=== PATIENT | female | born 1980 | race African-American/Black ===

== ENCOUNTER 2016-09-05 16:25 | Emergency (ER) | payer OTHER ==
[2016-09-05 16:37] VITALS: RESP 18
--- NOTE | 2016-09-05 17:15 | XR ---
EXAMINATION TYPE: XR knee complete LT DATE OF EXAM: 09/05/2016 5:07 PM COMPARISON: NONE HISTORY: Knee pain for one and half weeks TECHNIQUE: 3 views FINDINGS: I see no fracture nor dislocation. Joint spaces are fairly normal. There is no sign of join t effusion. IMPRESSION: Negative left knee exam.
--- NOTE | 2016-09-05 17:26 | ED ---
General Adult HPI - General Chief complaint: Extremity Injury, Lower Stated complaint: Left Knee Pain Time Seen by Provider: 09/05/16 16:44 Source: patient, RN notes reviewed Mode of arrival: ambulatory Limitations: no limitations - History of Present Illness Initial comments: Is a 35-year-old female who presents with left posterior knee pain 1 week and a half. Patient states she was laying in bed when she went to get up she noticed pain in the left posterior knee. Patient denies any fall or trauma to the left knee. Patient states she has chronic swelling to bilateral lower extremities and denies any history of DVT. Patient denies noticing any increased swelling to the left lower extremity versus the right. Patient denies that she's had any pain like this before. Patient denies any numbness/ tingling or weakness to the left lower extremity. Patient denies any radicular pain. Patient states the pain is worse with extension of the lower extremity and with walking. Patient denies any recent fever, chills, shortness breath, chest pain, abdominal pain, nausea/vomiting/diarrhea, back pain, hematuria, headache, or visual changes, or any other complaints. - Related Data Previous Rx's Medication Instructions Recorded Naproxen [Naprosyn] 500 mg PO Q12HR #30 tab 07/10/16 Allergies Allergy/AdvReac Type Severity Reaction Status Date / Time No Known Allergies Allergy Verified 09/05/16 16:37 Review of Systems ROS Statement: Those systems with pertinent positive or pertinent negative responses have been documented in the HPI. ROS Other: All systems not noted in ROS Statement are negative. Past Medical History Past Medical History: No Reported History Additional Past Medical History / Comment(s): leg issues, restless leg syndrome History of Any Multi-Drug Resistant Organisms: None Reported Past Surgical History: No Surgical Hx Reported Past Psychological History: No Psychological Hx Reported Smoking Status: Current every day smoker Past Alcohol Use History: Occasional Past Drug Use History: None Reported General Exam - General Exam Comments Initial Comments: General: The patient is awake and alert, in no distress, and does not appear acutely ill. Neck: The neck is supple, there is no tenderness or JVD. Cardiovascular: There is a regular rate and rhythm. No murmur, rub or gallop is appreciated. Respiratory: Lungs are clear to auscultation, respirations are non-labored, breath sounds are equal. No wheezes, stridor, rales, or rhonchi. Musculoskeletal: There is tenderness to the posterior lateral aspect of the left knee. There is mild swelling to the posterior lateral aspect of the left knee. No erythema, warmth or ecchymosis. Full range of motion, strength 5/5 and Sensation intact. Dorsalis pedis pulses 2+ bilaterally. No calf tenderness bilaterally. Neurological: A&O x 3. CN II-XII intact, There are no obvious motor or sensory deficits. Coordination appears grossly intact. Speech is normal. Skin: Skin is warm and dry and no rashes or lesions are noted. Psychiatric: Normal mood and affect. Limitations: no limitations Course Vital Signs 09/05/16 16:33 Temperature 98.6 F Pulse Rate 98 Respiratory 18 Rate Blood Pressure 144/70 O2 Sat by Pulse 100 Oximetry Medical Decision Making - Medical Decision Making This is a 35-year-old female resents with left posterior knee pain. On physical exam there is tenderness to the posterior lateral aspect of the left knee. There is mild swelling to the lateral posterior lateral aspect of the left knee. No erythema, warmth or ecchymosis. Full range of motion, strength 5 /5 and Sensation intact. Dorsalis pedis pulses 2+ bilaterally. No calf tenderness bilaterally. X-ray of the left knee was done and reviewed showing: Negative left knee exam. Reported by Dr. Lr. Ultrasound of the left lower extremity was done and reviewed showing: No evidence of deep venous thrombosis in the left leg. There is normal augmentation. Reported by Dr. Lr. Discussed the results with patient. Discussed return parameters. Discussed rest, ice, elevate and use Jacob bandage for compression. Patient is able to ambulate. Discussed [id number] Tylenol and or Motrin as needed for any pain. Discussed that patient should follow up with PCP in one to 2 days or return to the [facility] for any worsening symptoms or for any further concerns. Patient was receptive to this plan and patient will be discharged home. I discussed his case with attending physician Dr. Parsons who agrees the plan as stated above. Disposition Clinical Impression: Left lateral knee pain, Posterior left knee pain Disposition: HOME SELF-CARE Condition: Good Instructions: Knee Pain (ED) Additional Instructions: Please rest, ice, elevate and use compression to the left lower extremity. Tylenol and Motrin as needed for any pain. Please use medication as discussed. Please follow-up with family doctor in the next 2 days of symptoms have not improved. Please return to emergency room if the symptoms increase or worsen or for any other concerns. Referrals: Allison Cardenas MD [Primary Care Provider] - 1-2 days Time of Disposition: 18:35
--- NOTE | 2016-09-05 18:19 | US ---
EXAMINATION TYPE: US venous doppler duplex LE LT DATE OF EXAM: 09/05/2016 6:08 PM COMPARISON: NONE CLINICAL HISTORY: Left posterior knee pain; patient stated left knee locked 2 days prior and has cont inued left knee pain and weakness. SIDE PERFORMED: Left VESSELS IMAGED: Common Femoral Vein Deep Femoral Vein Greater Saphenous Vein * Femoral Vein Popliteal Vein Small Saphenous Vein * Proximal Calf Veins (* superficial vessels) Left Leg: Negative for DVT as was able to image due to large limb size. Left Popliteal Vein was limi tedly seen for compression maneuver TECHNOLOGIST IMPRESSION: Exam is technically limited by patient body habitus at HT5'4", Wt 320lbs IMPRESSION: No evidence of deep venous thrombosis in the left leg. There is normal augmentation.
[2016-09-05 18:43] VITALS: BP 144/82; PULSE 84; TEMP 98.7
== END 2016-09-05 18:42 | disposition home or self-care (01) ==
LOC: EC 16:25
DX: M25.562 Pain in left knee (principal); F17.200 Nicotine dependence, unspecified, uncomplicated; X58.XXXA Exposure to other specified factors, initial encounter
CPT/HCPCS: 99284

== ENCOUNTER → 2017-12-12 | Outpatient (CLI) | payer OTHER ==
[2017-12-12 10:18] VITALS: BP 169/100; PULSE 97; RESP 15; TEMP 98.1; BMI 67.3
--- NOTE | 2017-12-29 21:07 | P.HPBAR ---
Bariatric H&P - History & Physicial H&P Date: 12/12/17 History & Physicial: Visit/CC: sleeve consult Patient initial contact: Initial weight: 179.26 kg Initial weight in pounds: 395.20 Height: 5 ft 4.25 in Initial BMI: 67.3 Last weight: Current weight: 179.26 kg Current weight in pounds: 395.20 Current BMI: 67.3 [place] body weight (based on NIH guidelines): 54.998 kg Excess body weight loss: 0.0% The patient is a 37 year-old F who presents for Bariatric Assessment. DATE OF SERVICE: 12/12/2017 REASON FOR CONSULTATION: Initial bariatric evaluation HISTORY OF PRESENT ILLNESS: Amber Rodríguez is a 37-year-old female who comes in with long-standing morbid obesity. As result of her obesity, she has developed hypertension. She also developed diabetes. She has stopped smoking. She has tried Weight Watchers included and portion control. She lost initially 27 pounds. She has developed sleep apnea. She is looking into the sleeve gastrectomy. She has a family history of morbid obesity with weight loss surgery in her mother. She reports troubles with spicey food. She still has her gallbladder. She reports back pain including left hip pain and right knee pain. She has arthritis of the left knee. She reports bilateral lower extremity swelling. She is looking into the sleeve gastrectomy. She reports history of right upper quadrant abdominal pain. At height of 5 feet 4.25 inches, her ideal body weight is 144 pounds. She comes in highest weight of 394 pounds. Body mass index is 67.3. She is 250 pounds overweight. PAST MEDICAL HISTORY: 1. Morbid obesity. 2. Body mass index of 67.3, initial. 3. Osteoarthritis of the knees. 4. Osteoarthritis of the hips. 5. Osteoarthritis of the lower back. 6. Obstructive sleep apnea. 7. Hypertensive heart disease. 8. Gastroesophageal reflux disease 9. Diabetes type 2 10. Osteoarthritis of the bilateral ankles. PAST SURGICAL HISTORY: 1. section 2. Uterine ablation 3. Tonsillectomy 4. Orthopedic procedure 5. Eustachian tubes 6. Bilateral carpal tunnel release HOME MEDICATIONS: 1. Naprosyn 2. Motrin ALLERGIES: Denies. SOCIAL HISTORY: History of tobacco abuse. FAMILY HISTORY: No family history of ulcerative colitis disease or Crohn's disease. Family history of morbid obesity. No lupus in the family. No reports of stomach or esophageal cancer. Family history of diabetes type 2. REVIEW OF ORGAN SYSTEMS: CONSTITUTIONAL: At height of 5 feet 4.25 inches, her ideal body weight is 144 pounds. She comes in highest weight of 394 pounds. Body mass index is 67.3. She is 250 pounds overweight. HEENT: Denies any active troubles with vision or hearing. No troubles with swallowing. ENDOCRINE: Has diabetes. No hypothyroidism. CARDIOVASCULAR: No reports of palpitations or heart attacks or chest pain. RESPIRATORY: Has daytime somnolence. No asthma. Has obstructive sleep apnea. GI: Denies any bright red blood per rectum. No diarrhea or constipation. Has gastroesophageal reflux disease. Has fatty food intolerance. MUSCULOSKELETAL: Has lower back pain and joint pain. Has osteoarthritis of the knees. NEURO: No headaches. No seizure disorders. PSYCH: Has depression. Has anxiety. No suicidal ideation. RHEUMATOLOGIC: No lupus. No rheumatoid arthritis. HEMATOLOGIC: Denies any abnormal bleeding or bruising. No personal history of DVTs. SKIN: No rash. No skin cancer. PHYSICAL EXAM: VITAL SIGNS: Height 5 foot 4.25 inches, weight 394 pounds. BMI 67.3 Vital Signs Temp 98.1 F 12/12/17 10:06 Pulse 97 12/12/17 10:06 Resp 15 12/12/17 10:06 BP 169/100 12/12/17 10:06 Pulse Ox GENERAL: Well-developed in no acute distress. HEENT: No scleral icterus. Extraocular movements grossly intact. Hears conversational speech. No nasal drainage. NECK: Supple without lymphadenopathy. CHEST: Nonlabored respirations with equal bilateral excursions. CARDIOVASCULAR: Regular rate and regular rhythm. Distal 2+ pulses. ABDOMEN: Obese, soft, nontender, nondistended. MUSCULOSKELETAL: No clubbing, cyanosis. Gross strength 5/5 distal lower extremities. 2+ pre-tibial pitting edema. NEURO: No focal or lateralizing signs. Cranial nerves 2 through 12 grossly within normal limits. PSYCH: Appropriate affect. Alert and oriented to person, place and time. SKIN: Good skin turgor. Well perfused. ASSESSMENT: 1. Morbid obesity. 2. Body mass index of 67.3, initial. 3. Osteoarthritis of the knees. 4. Osteoarthritis of the hips. 5. Osteoarthritis of the lower back. 6. Obstructive sleep apnea. 7. Hypertensive heart disease. 8. Gastroesophageal reflux disease 9. Diabetes type 2 10. Osteoarthritis of the bilateral ankles. 11. Bilateral lower extremity edema. 12. Right upper quadrant abdominal pain PLAN: 1. Surgical options including a band, gastric bypass, sleeve gastrectomy were described in detail. Alternatives such as gastric balloon including duodenal switch were described. 2. The [place] bariatric surgical collaborative data and outcomes calculator were described with surgical options. 3. Recommend a bariatric metabolic panel to evaluate for micro- including macronutrient deficiencies. 4. For history of daytime somnolence, recommend evaluation and treatment for sleep apnea. 5. Dietary surveillance and counseling was reviewed, I have asked increased protein intake to at least 65 grams daily. 6. Will need cardiac risk assessment. 7. Recommend medical risk assessment. 8. Psych assessment per insurance guidelines. 9. Follow up upon completion of upper endoscopy. 10. Recommend 12-lead EKG with family history of hypertensive heart disease. 11. Recommend upper endoscopy. 12. Recommend right upper quadrant ultrasound and HIDA scan for gallbladder Thank you for this consultation. Past Medical History Past Medical History: No Reported History, Hypertension Additional Past Medical History / Comment(s): leg issues, restless leg syndrome , states she was using a diuretic for HTN but was d/c by Dr. Cardenas History of Any Multi-Drug Resistant Organisms: None Reported Past Surgical History: No Surgical Hx Reported Past Anesthesia/Blood Transfusion Reactions: No Reported Reaction Additional Past Anesthesia/Blood Transfusion Reaction / Comm: No problems being put under for dental extractions Past Psychological History: No Psychological Hx Reported Smoking Status: Current every day smoker Past Alcohol Use History: Occasional Additional Past Alcohol Use History / Comment(s): smokes 3-4 cigarettes/day Past Drug Use History: None Reported - Past Family History Mother Family Medical History: No Reported History Additional Family Medical History / Comment(s): mother had bariatric surgery Father Family Medical History: No Reported History Surgical - Exam Vital Signs Temp Pulse Resp BP 98.1 F 97 15 169/100 12/12/17 10:06 12/12/17 10:06 12/12/17 10:06 12/12/17 10:06 Bariatric Checklist Checklist: Plan: Checklist: EGD: 1. Hiatal hernia: 2. H. Pylori: HgbA1c: Vitamin D: Smoking: Current every day smoker Primary care physician referral: stephanie Psychiatry clearance: Cardiology clearance: Sleep study: Diet journal: VTE risk score: VTE risk level: Rehab needs at discharge:
== END | disposition home or self-care (01) ==
LOC: BARWHC3 09:38
PROVIDERS: ATTEND Surgery Plastic and Reconstructive Surgery
DX: E66.01 Morbid (severe) obesity due to excess calories (principal); K21.9 Gastro-esophageal reflux disease without esophagitis; M17.0 Bilateral primary osteoarthritis of knee; M16.0 Bilateral primary osteoarthritis of hip; M47.9 Spondylosis, unspecified; G47.33 Obstructive sleep apnea (adult) (pediatric); I11.9 Hypertensive heart disease without heart failure; E11.9 Type 2 diabetes mellitus without complications; M19.072 Primary osteoarthritis, left ankle and foot; M19.071 Primary osteoarthritis, right ankle and foot; R60.0 Localized edema; R10.11 Right upper quadrant pain; G25.81 Restless legs syndrome; F17.210 Nicotine dependence, cigarettes, uncomplicated; Z79.1 Long term (current) use of non-steroidal anti-inflammatories (NSAID); Z68.44 Body mass index [BMI] 60.0-69.9, adult; Z79.2 Long term (current) use of antibiotics
CPT/HCPCS: 99211

== ENCOUNTER → 2018-05-08 | Outpatient (CLI) | payer OTHER ==
--- NOTE | 2018-05-08 11:57 | CONS ---
CONSULTATION DATE OF SERVICE: 05/08/2018 A 37-year-old lady has been evaluated in sleep center for obstructive sleep apnea- hypopnea syndrome. HISTORY OF PRESENT ILLNESS/SLEEP-WAKE EVALUATION: Patient usual sleep schedule on weekdays from around 3 a.m. until around 9 a.m. and on weekends from about 2 a.m. until 8 or 9 a.m. No problems with falling asleep, although she has TV in bedroom. She sleeps on the stomach with extremely loud snoring, multiple awakenings from sleep with nocturia, witnessed episodes of stopped breathing during the sleep and awakenings with gasping for air and even vomiting. In the morning, patient wakes up tired, falling asleep during the day, has problem with concentration. [place] Sleepiness Scale is in extremely high range of 20. PAST MEDICAL HISTORY: Positive for swelling of legs, seasonal allergy with rhinitis and sinusitis. MEDICATIONS: ID packs, ibuprofen, water pills. SOCIAL HISTORY: Positive for smoking for about 10 pack years, quit 1 week ago. Alcohol consumption occasional. REVIEW OF SYSTEMS: Multiple awakenings from sleep, sleepiness during the day. Presently significant restriction of nasal breathing, nasal discharge, or swelling of the legs. FAMILY HISTORY: Hypertension, arthritis, thyroid problems. PHYSICAL EXAMINATION: During physical exam, a 37-year-old lady without distress. VITAL SIGNS: BP 164/92, HR 93, RR 15, height 65 inches, weight 416.4 pounds, body mass index 69.2, temperature 98, oxygen saturation on room air 100%. HEENT: PERRLA, EOMI. Oropharynx extremely low position of soft palate, Mallampati 4. Restriction of nasal breathing bilaterally. Nose, some discharges from the nose. NECK: A wide neck 16-1/2 inches in circumference. LUNGS: Clear to percussion and to auscultation. Good air exchange. No wheezing or rhonchi. HEART: S1, S2 regular. No murmurs, gallops, or rubs. ABDOMEN: Obese. EXTREMITIES: 1+ bilateral leg edema. CURING ROOM SUPERVISOR: Awake, alert, and oriented X3. Cranial nerves 2 to 7 intact. There is no fasciculation or atrophy. noted. No focal deficits observed. IMPRESSION: 1. Snoring, witnessed episodes of stopped breathing during the sleep, awakenings with gasping for air and vomiting, extremely low position of soft palate, wide neck, restriction of nasal breathing, significant excessive daytime sleepiness. [place] Sleepiness Scale is 20. Obstructive sleep apnea-hypopnea syndrome, probably in severe range. 2. Morbid obesity, body mass index 69.2. 3. Hypertension. 4. Swelling of the legs. 5. Seasonal allergy. 6. Rhinitis. 7. History of sinusitis. PLAN: 1. Polysomnography for evaluation of patient's breathing during sleep. 2. CPAP/BiPAP titration if sleep study confirms obstructive sleep apnea-hypopnea syndrome. 3. Losing weight. 4. Preferable position during sleep on the side. 5. No driving if patient feels any sleepiness. 6. Patient is preparing for possible bariatric surgery. She will need to take her CPAP unit with her to the hospital. 7. Monitoring of blood pressure. Follow up with the primary care physician for possibility to start medications for hypertension. Low-sodium diet. Thank you very much for referring this patient for consultation. Sincerely, rBayan Conti MD, PhD, FAASM Diplomat of [place] [employer] [place] [employer] Television Specialist of [facility] [place] MMODL / IJN: [id number] /
== END | disposition home or self-care (01) ==
LOC: SLEEP 10:29
PROVIDERS: ATTEND Internal Medicine
DX: G47.33 Obstructive sleep apnea (adult) (pediatric) (principal); E66.01 Morbid (severe) obesity due to excess calories; I10 Essential (primary) hypertension; J31.0 Chronic rhinitis; Z68.44 Body mass index [BMI] 60.0-69.9, adult; Z85.22 Personal history of malignant neoplasm of nasal cavities, middle ear, and accessory sinuses; Z87.891 Personal history of nicotine dependence; Z79.1 Long term (current) use of non-steroidal anti-inflammatories (NSAID)
CPT/HCPCS: 99211

== ENCOUNTER 2018-07-28 01:28 | Emergency (ER) | payer OTHER ==
[2018-07-28 01:33] VITALS: TEMP 97.8
[2018-07-28] MEDS ORDERED: MORPHINE SULFATE 4 MG/ML SYRINGE IV STA (01:54)
[2018-07-28 02:17] LABS: Anisocytosis Slight; Basophils % (A) 0 %; Eosinophils # (A) 0.3 k/uL (0-0.7); Eosinophils % (A) 4 %; HCT 41.6 % (34.0-46.0); Hypochromasia Slight; Lymphocytes # (A) 2.5 k/uL (1.0-4.8); Lymphocytes % (A) 30 %; MCH 22.4 pg (25.0-35.0); MCHC 31.2 g/dL (31.0-37.0); MCV 71.7 fL (80.0-100.0); Microcytosis Moderate; Monocytes # (A) 0.4 k/uL (0-1.0); Monocytes % (A) 5 %; Neutrophils % (A) 59 %; Platelet Count 296 k/uL (150-450); RDW 16.6 % (11.5-15.5); WBC 8.6 k/uL (3.8-10.6)
[2018-07-28 02:30] LABS: ALT 22 U/L (9-52); AST 16 U/L (14-36); Albumin 3.7 g/dL (3.5-5.0); Alkaline Phosphatase 64 U/L (38-126); Anion Gap 5 mmol/L; Blood Urea Nitrogen 10 mg/dL (7-17); Calcium 9.5 mg/dL (8.4-10.2); Carbon Dioxide 29 mmol/L (22-30); Chloride 102 mmol/L (98-107); Glucose 117 mg/dL (74-99); Magnesium 2.1 mg/dL (1.6-2.3); Potassium 4.4 mmol/L (3.5-5.1); Sodium 136 mmol/L (137-145); Total Bilirubin 0.4 mg/dL (0.2-1.3); Total Protein 7.2 g/dL (6.3-8.2)
[2018-07-28 02:31] LABS: Creatine Kinase 69 U/L (30-135)
--- NOTE | 2018-07-28 02:34 | CT ---
EXAMINATION TYPE: CT chest angio for PE DATE OF EXAM: 07/28/2018 COMPARISON: 07/10/2016 HISTORY: DEYA CT DLP: 936 mGycm Automated exposure control for dose reduction was used. CONTRAST: CT Chest for pulmonary embolism performed with with IV Contrast, patient injected with 60mL mL of Iso sol 370. FINDINGS: There are 3-D post processed images. There is mild subsegmental atelectasis at the lung bases. There is no pericardial effusion. There is no pleural effusion. There is no mediastinal adenopathy. There are no hilar masses. Thoracic aorta is intact without evidence of aneurysm or dissection. There is normal contrast opacification of the pulmonary arteries. I see no filling defect. Exam is li mited by patient size. The bony thorax appears intact. IMPRESSION: No evidence of pulmonary embolism. Subsegmental atelectasis at the lung bases without significant cookie nge.
[2018-07-28 02:35] LABS: Partial Thromboplastin Time 23.4 sec (22.0-30.0); Prothrombin Time 10.2 sec (9.0-12.0)
[2018-07-28 02:43] LABS: Creatine Kinase MB 0.5 ng/mL (0.0-2.4); Troponin I <0.012 ng/mL (0.000-0.034)
[2018-07-28] MEDS ORDERED: ALBUTEROL NEBULIZED 2.5 MG/3 ML INHALATION STA (02:47)
--- NOTE | 2018-07-28 04:44 | ED ---
Chest Pain HPI - General Chief Complaint: Chest Pain Stated Complaint: Back pain, DEYA Time Seen by Provider: 07/28/18 01:40 Source: patient, family Mode of arrival: wheelchair Limitations: no limitations - History of Present Illness Initial Comments: This patient is a 37-year-old woman who presents to be evaluated for right thoracic back pain that radiates around toward her chest. The patient states that the pain is constant, moderately severe, and is aching. She states that the pain gets worse with certain movements. The patient states that this had come on after she had developed a cough. She has not noted any other associated factors, including no fever or chills, nausea or vomiting, Complaint: other -: hour(s) Onset: during rest Pain Location: other (Right back) Severity: moderate Quality: aching Consistency: constant Improves With: nothing Worsens With: movement Other Symptoms: cough, other (Congestion) Treatments Prior to Arrival: none - Related Data Home Medications Medication Instructions Recorded Confirmed Ibuprofen [Motrin] 800 mg PO TID PRN 12/12/17 12/12/17 Previous Rx's Medication Instructions Recorded Naproxen [Naprosyn] 500 mg PO Q12HR #30 tab 07/10/16 Methocarbamol [Robaxin-750] 750 mg PO TID PRN #30 tablet 07/28/18 predniSONE 20 mg PO BID #8 tab 07/28/18 Allergies Allergy/AdvReac Type Severity Reaction Status Date / Time No Known Allergies Allergy Verified 07/28/18 01:34 Review of Systems ROS Statement: Those systems with pertinent positive or pertinent negative responses have been documented in the HPI. ROS Other: All systems not noted in ROS Statement are negative. Constitutional: Denies: fever, chills, weakness ENT: Reports: congestion Respiratory: Reports: cough. Denies: dyspnea, wheezes, hemoptysis Cardiovascular: Reports: as per HPI, chest pain. Denies: palpitations, orthopnea, edema, syncope Gastrointestinal: Denies: abdominal pain, nausea, vomiting Genitourinary: Denies: dysuria, hematuria Musculoskeletal: Reports: as per HPI, back pain Skin: Denies: rash Neurological: Denies: headache, weakness, numbness EKG Findings - EKG Results: EKG: interpreted by DEUCE WNL, sinus rhythm (Rate 93 bpm), normal axis, normal QRS, normal ST/T, no acute changes - AR, Pacemaker, Normal: Normal tracing: normal tracing Past Medical History Past Medical History: No Reported History, Hypertension Additional Past Medical History / Comment(s): leg issues, restless leg syndrome , states she was using a diuretic for HTN but was d/c by Dr. Cardenas History of Any Multi-Drug Resistant Organisms: None Reported Past Surgical History: No Surgical Hx Reported Past Anesthesia/Blood Transfusion Reactions: No Reported Reaction Additional Past Anesthesia/Blood Transfusion Reaction / Comment(s): No problems being put under for dental extractions Past Psychological History: No Psychological Hx Reported Smoking Status: Current every day smoker Past Alcohol Use History: Occasional Past Drug Use History: None Reported - Past Family History Mother Family Medical History: No Reported History Additional Family Medical History / Comment(s): mother had bariatric surgery Father Family Medical History: No Reported History General Exam Limitations: no limitations General appearance: alert, in no apparent distress, obese Head exam: Present: atraumatic, normocephalic Eye exam: Present: normal appearance, PERRL, EOMI. Absent: scleral icterus, conjunctival injection Respiratory exam: Present: normal lung sounds bilaterally. Absent: respiratory distress, wheezes, rales, rhonchi, stridor, chest wall tenderness, accessory muscle use, decreased breath sounds, prolonged expiratory Cardiovascular Exam: Present: regular rate, normal rhythm, normal heart sounds. Absent: systolic murmur, diastolic murmur, rubs, gallop GI/Abdominal exam: Present: soft. Absent: distended, tenderness, guarding, rebound, rigid Extremities exam: Present: normal inspection, normal capillary refill. Absent: pedal edema, calf tenderness Back exam: Present: normal inspection, paraspinal tenderness (Right thoracic back). Absent: CVA tenderness (R), CVA tenderness (L), vertebral tenderness Neurological exam: Present: alert Skin exam: Present: warm, dry, intact, normal color. Absent: rash Course Vital Signs 07/28/18 07/28/18 07/28/18 01:30 02:00 03:00 Temperature 97.8 F Pulse Rate 89 95 101 H Respiratory 20 34 H 26 H Rate Blood Pressure 148/94 139/92 134/80 O2 Sat by Pulse 100 100 100 Oximetry 07/28/18 07/28/18 07/28/18 04:00 04:14 04:22 Temperature Pulse Rate 104 H 104 H 101 H Respiratory 25 H Rate Blood Pressure 127/76 O2 Sat by Pulse 100 Oximetry 07/28/18 04:30 Temperature Pulse Rate 103 H Respiratory 20 Rate Blood Pressure 125/78 O2 Sat by Pulse 98 Oximetry Disposition Clinical Impression: Back pain Disposition: HOME SELF-CARE Condition: Good Prescriptions: Methocarbamol [Robaxin-750] 750 mg PO TID PRN #30 tablet PRN Reason: pain predniSONE 20 mg PO BID #8 tab Is patient prescribed a controlled substance at d/c from ED?: No Referrals: Allison Cardenas MD [Primary Care Provider] - 1-2 days
[2018-07-28 04:53] VITALS: BP 125/78; PULSE 103; RESP 20
== END 2018-07-28 04:46 | disposition home or self-care (01) ==
LOC: EC 01:28
DX: M54.6 Pain in thoracic spine (principal); R07.9 Chest pain, unspecified; R05 Cough; R09.89 Other specified symptoms and signs involving the circulatory and respiratory systems; F17.200 Nicotine dependence, unspecified, uncomplicated
CPT/HCPCS: 36415; 94640; 83880; 80053; 82550; 82553; 83735; 84484; 85025; 85610; 85730; 71275; 99284; 96374; J2270; Q9967

== ENCOUNTER 2019-01-16 14:15 | Emergency (ER) | payer OTHER ==
[2019-01-16] MEDS ORDERED: AMOXIC-POT CLAV 875-125MG 1 EACH TAB PO STA (14:43)
[2019-01-16] MEDS ORDERED: DEXAMETHASONE SOD PHOSPHATE 10 MG/ML 1 ML VIAL IM STA (14:43)
[2019-01-16] MEDS ORDERED: SULFAMETHOX-TMP 800-160MG 1 EACH TAB PO STA (14:43)
--- NOTE | 2019-01-16 15:39 | ED ---
ENT HPI - General Chief complaint: ENT Stated complaint: sinus infection, swollen eye Time Seen by Provider: 01/16/19 14:38 Source: patient, RN notes reviewed, old records reviewed Mode of arrival: ambulatory Limitations: no limitations - History of Present Illness Initial comments: This is a 38-year-old female the ER for evaluation of pain left-sided facial pain left eye pain, left neck pain. No fevers. No cough or congestion or shortness of breath. Patient has no eye pain no loss of vision. Patient states she woke up with symptoms today. No recent travel history no sick contacts. No history of similar complaint MD complaint: tooth pain, sore throat -: hour(s) Location: other (Left Eye) Severity: moderate Severity scale (1-10): 4 Consistency: constant Improves with: none Worsens with: none Context- Ear: recent illness Associated Symptoms: other (left sided facial pain and swelling) - Related Data Home Medications Medication Instructions Recorded Confirmed Ibuprofen [Motrin Ib] 600 - 800 mg PO TID PRN 01/16/19 01/16/19 Allergies Allergy/AdvReac Type Severity Reaction Status Date / Time No Known Allergies Allergy Verified 01/16/19 14:35 Review of Systems ROS Statement: Those systems with pertinent positive or pertinent negative responses have been documented in the HPI. ROS Other: All systems not noted in ROS Statement are negative. Past Medical History Past Medical History: Hypertension Additional Past Medical History / Comment(s): leg issues, restless leg syndrome, states she was using a diuretic for HTN but was d/c by Dr. Cardenas History of Any Multi-Drug Resistant Organisms: None Reported Past Surgical History: No Surgical Hx Reported Past Anesthesia/Blood Transfusion Reactions: No Reported Reaction Additional Past Anesthesia/Blood Transfusion Reaction / Comment(s): No problems being put under for dental extractions Past Psychological History: No Psychological Hx Reported Smoking Status: Current every day smoker Past Alcohol Use History: Occasional Past Drug Use History: None Reported - Past Family History Mother Family Medical History: No Reported History Additional Family Medical History / Comment(s): mother had bariatric surgery Father Family Medical History: No Reported History General Exam Limitations: no limitations General appearance: alert, in no apparent distress Head exam: Present: atraumatic, normocephalic, normal inspection Eye exam: Present: normal appearance, PERRL, EOMI, other (Patient does have likely periorbital preseptal cellulitis with swelling of left eye, no proptosis no pain on palpation. Patient also has significant cervical lymphadenopathy and left-sided facial swelling). Absent: scleral icterus, conjunctival injection, periorbital swelling ENT exam: Present: normal exam, mucous membranes moist Neck exam: Present: normal inspection. Absent: tenderness, meningismus, lymphadenopathy Respiratory exam: Present: normal lung sounds bilaterally. Absent: respiratory distress, wheezes, rales, rhonchi, stridor Cardiovascular Exam: Present: regular rate, normal rhythm, normal heart sounds. Absent: systolic murmur, diastolic murmur, rubs, gallop, clicks GI/Abdominal exam: Present: soft, normal bowel sounds. Absent: distended, tenderness, guarding, rebound, rigid Extremities exam: Present: normal inspection, full ROM, normal capillary refill. Absent: tenderness, pedal edema, joint swelling, calf tenderness Back exam: Present: normal inspection Neurological exam: Present: alert, oriented X3, CN II-XII intact Psychiatric exam: Present: normal affect, normal mood Skin exam: Present: warm, dry, intact, normal color. Absent: rash Course Vital Signs 01/16/19 14:23 Temperature 98.2 F Pulse Rate 104 H Respiratory 20 Rate Blood Pressure 138/105 O2 Sat by Pulse 97 Oximetry Medical Decision Making - Medical Decision Making 38 female the ER for evaluation with left facial swelling. Patient does have CT positive for sialoadenitis preseptal cellulitis, no proptosis, no eye pain on palpation. Patient can be discharged home on antibiotics - Radiology Data Radiology results: report reviewed (CT soft tissue neck as well as facial bones does show likely preseptal sialitis and sialoadenitis), image reviewed Disposition Clinical Impression: Preseptal cellulitis of left eye, Sialoadenitis, Lymphadenitis Disposition: HOME SELF-CARE Condition: Good Instructions (If sedation given, give patient instructions): Periorbital Cellulitis in Adults (ED), Sialoadenitis (ED) Is patient prescribed a controlled substance at d/c from ED?: No Referrals: Allison Cardenas MD [Primary Care Provider] - 1-2 days
--- NOTE | 2019-01-16 16:01 | CT ---
EXAMINATION TYPE: CT soft tissue neck wo con DATE OF EXAM: 01/16/2019 HISTORY: Left sided facial and eye swelling, extending down into neck. COMPARISON: None CT DLP: 655 mGycm. Automated Exposure Control for Dose Reduction was Utilized. TECHNIQUE: CT scan of the neck is performed without IV contrast FINDINGS: Lack of intravenous contrast could compromise sensitivity. Airway: No gross abnormality seen. Parotid/submandibular glands: No gross abnormality seen. Carotid/Vascular Structures: Limited by lack of contrast Osseous Structures: Loss of normal cervical lordosis could be positional or due to muscle strain. Other: Suspect some submandibular adenopathy is present greater on the left and there is adenopathy a long the anterior cervical chain. Parapharyngeal calcifications likely due to chronic infection. IMPRESSION: Submandibular and cervical adenopathy on the left. Lack of contrast could compromise sens itivity.
--- NOTE | 2019-01-16 16:04 | CT ---
EXAMINATION TYPE: CT facial bones wo con DATE OF EXAM: 01/16/2019 COMPARISON: CT soft tissues of the same date HISTORY: Left sided facial and eye swelling, extending down into neck. CT DLP: 892.3 mGycm Automated exposure control for dose reduction was used. TECHNIQUE: CT scan of the sinuses is performed without contrast, axial images are obtained, coronal r eformatted images are also reviewed. FINDINGS: There is abnormal left submandibular and deep cervical adenopathy medial to the inferior as pect of the deep lobe of the parotid gland measuring up to 2.1 cm in short axis. Left submandibular a denopathy is asymmetric from the nonenlarged right submandibular lymph nodes. The remainder of the pa rotid glands appear unremarkable. Less than mandibular gland is asymmetrically enlarged in comparison to the right. No surrounding inflammatory fat stranding is seen nor ductal dilatation. No calculi. No preseptal phlegmonous changes are seen surrounding the left orbit. The preseptal fat is slightly m ore attenuated on the left than right such as on image 61, very subtle. The globes maintain a rounded contour and lenses are in place. Extraocular muscles appear symmetric. Visualized portions of the ca lvarium demonstrate no acute fracture. Right frontal well-circumscribed lipomatous lesion measures up to 1.2 cm in greatest thickness. No acute facial bone fracture is seen. Moderate mucosal thickening in the ethmoid sinuses and secreti ons within the nasopharynx and posterior nasopharynx are noted. Remainder the paranasal sinuses and v isualized mastoid air cells are well aerated. The pontine tonsils are enlarged however no surrounding phlegmonous changes are seen. Right sided ton adria with is incidentally noted. Oropharynx remains patent. IMPRESSION: 1. Left cervical and submandibular adenopathy. Asymmetric size of the left submandibular gland is see n that could relate to sialoadenitis however no inflammatory fat stranding is seen and therefore nilam opathy is not definitively reactive. Intravenous contrast could aid in appropriate measurement of scott nopathy as other etiologies such as lymphoma are possible. 2. In this patient with left eye swelling, there is only very subtle preseptal inflammatory fat stran ding. Preseptal cellulitis could be considered in the appropriate clinical setting.
[2019-01-16 16:31] VITALS: BP 127/75; PULSE 89; RESP 18; TEMP 99.2
== END 2019-01-16 16:29 | disposition home or self-care (01) ==
LOC: EC 14:15
DX: L03.213 Periorbital cellulitis (principal); K11.20 Sialoadenitis, unspecified; I88.9 Nonspecific lymphadenitis, unspecified; F17.200 Nicotine dependence, unspecified, uncomplicated
CPT/HCPCS: 70486; 70490; 99284; 96372; J1100

== ENCOUNTER → 2019-11-02 | Outpatient (CLI) | payer OTHER ==
--- NOTE | 2019-11-02 16:01 | XR ---
EXAMINATION TYPE: XR chest 2V DATE OF EXAM: 11/02/2019 COMPARISON: 06/28/2015 HISTORY: Shortness of breath TECHNIQUE: Frontal and lateral views of the chest are obtained. FINDINGS: There is no focal air space opacity, pleural effusion, or pneumothorax seen. Diffuse inte rstitial prominence is seen throughout. The cardiac silhouette size is within normal limits. The os seous structures are intact. IMPRESSION: Diffuse interstitial prominence that can be seen in interstitial pulmonary edema or atyp ical pneumonia.
--- NOTE | 2019-11-02 16:06 | XR ---
EXAMINATION TYPE: XR lumbar spine 2 or 3V DATE OF EXAM: 11/02/2019 CLINICAL HISTORY: Low back pain. TECHNIQUE: Frontal and lateral images of the lumbar spine are obtained. COMPARISON: None FINDINGS: There are 5 lumbar type vertebral bodies identified. The lumbar spine shows straightened alignment without evidence of acute fracture or dislocation. Vertebral body heights and disk space he ights are within normal limits. The overlying soft tissue appears unremarkable. IMPRESSION: Unremarkable study.
== END | disposition home or self-care (01) ==
LOC: RADXRMAIN 15:23
PROVIDERS: ATTEND Internal Medicine
DX: R91.8 Other nonspecific abnormal finding of lung field (principal); R06.02 Shortness of breath; M54.5 Low back pain
CPT/HCPCS: 71046; 72100

== ENCOUNTER → 2019-11-10 | Outpatient (CLI) | payer OTHER ==
--- NOTE | 2019-11-10 09:13 | US ---
EXAMINATION TYPE: US venous doppler duplex LE RT DATE OF EXAM: 11/10/2019 8:51 AM COMPARISON: NONE CLINICAL HISTORY: M79.661 PAIN RT LEG,R22.41 SWELLING RT LEG. SIDE PERFORMED: Right TECHNIQUE: The lower extremity deep venous system is examined utilizing real time linear array sonog kelvin with graded compression, doppler sonography and color-flow sonography. VESSELS IMAGED: External Iliac Vein (EIV) Common Femoral Vein Deep Femoral Vein Greater Saphenous Vein * Femoral Vein Popliteal Vein Small Saphenous Vein * Proximal Calf Veins/not seen due to obesity (* superficial vessels) Patient suffers from gross morbid obesity. Right Leg: Study is extremely limited due to body habitus. Appears negative for DVT, however unable to obtain compression views with the femoral vein, distal popliteal and proximal calf veins. Grayscale, color doppler, spectral doppler imaging performed of the deep veins of the lower extremiti es. Normal color flow and waveforms observed. IMPRESSION: Suboptimal study with no convincing evidence for acute DVT in the right lower extremity.
--- NOTE | 2019-11-10 12:38 | ECHOF ---
Referral Reason:R06.02 J81.0 Pulmonary edema MEASUREMENTS -------- HEIGHT: 162.6 cm WEIGHT: 200.9 kg BP: RVIDd: 2.7 cm (< 3.3) IVSd: 1.4 cm (0.6 - 1.1) LVIDd: 2.9 cm (3.9 - 5.3) LVPWd: 1.5 cm (0.6 - 1.1) IVSs: 1.7 cm LVIDs: 2.1 cm LVPWs: 1.7 cm Ao Diam: 3.1 cm (2.0 - 3.7) AV Cusp: 1.5 cm (1.5 - 2.6) LA Diam: 3.4 cm (2.7 - 3.8) MV EXCURSION: 15.965 mm (> 18.000) MV EF SLOPE: 169 mm/s (70 - 150) EPSS: 0.4 cm MV E Ernesto: 0.94 m/s MV DecT: 194 ms MV A Ernesto: 0.59 m/s MV E/A Ratio: 1.58 RAP: 5.00 mmHg RVSP: 14.31 mmHg FINDINGS -------- Sinus rhythm. This was a technically difficult study with suboptimal views. The left ventricular size is normal. There is moderate concentric left ventricular hypertrophy. O verall left ventricular systolic function is normal with, an EF between 55 - 60 %. The diastolic fi lling pattern is normal for the age of the patient 10.40. The right ventricle is normal in size. The left atrial size is normal. The right atrial size is normal. The aortic valve is trileaflet and appears structurally normal. The mitral valve is normal. There is trace mitral regurgitation. The tricuspid valve appears structurally normal. Trace tricuspid regurgitation present. Right sukhjinder tricular systolic pressure is normal at < 35 mmHg. There is no pulmonic regurgitation present. The aortic root size is normal. Normal inferior vena cava with normal inspiratory collapse consistent with estimated right atrial pre ssure of 5 mmHg. There is no pericardial effusion. CONCLUSIONS -------- 1. Sinus rhythm. 2. This was a technically difficult study with suboptimal views. 3. The left ventricular size is normal. 4. There is moderate concentric left ventricular hypertrophy. 5. Overall left ventricular systolic function is normal with, an EF between 55 - 60 %. 6. The diastolic filling pattern is normal for the age of the patient 10.40 7. The right ventricle is normal in size. 8. The left atrial size is normal. 9. The right atrial size is normal. 10. The aortic valve is trileaflet and appears structurally normal. 11. The mitral valve is normal. 12. There is trace mitral regurgitation. 13. The tricuspid valve appears structurally normal. 14. Trace tricuspid regurgitation present. 15. Right ventricular systolic pressure is normal at < 35 mmHg. 16. There is no pulmonic regurgitation present. 17. The aortic root size is normal. 18. Normal inferior vena cava with normal inspiratory collapse consistent with estimated right atrial pressure of 5 mmHg. 19. There is no pericardial effusion. AUTO PAINTER HELPER: Cielo Charles RDCS
== END | disposition home or self-care (01) ==
LOC: RADUSWWP 08:08
PROVIDERS: ATTEND Internal Medicine
DX: R06.02 Shortness of breath (principal); J81.0 Acute pulmonary edema
CPT/HCPCS: 93306

== ENCOUNTER → 2020-02-10 | Outpatient (CLI) | payer OTHER ==
[2020-02-10 14:18] VITALS: BP 149/91; PULSE 108; RESP 16; TEMP 98.5; BMI 74.2
--- NOTE | 2020-02-10 14:31 | P.HPBAR ---
Bariatric H&P - History & Physicial H&P Date: 02/10/20 History & Physicial: Visit/CC: Working on Criteria Patient initial contact: Initial weight: 179.26 kg Initial weight in pounds: 395.20 Height: 5 ft 4.25 in Initial BMI: 67.3 Last weight: Current weight: 197.766 kg Current weight in pounds: 436.00 Current BMI: 74.2 [place] body weight (based on NIH guidelines): 54.998 kg Excess body weight loss: The patient is a 39 year-old F who presents for Bariatric Assessment. DATE OF SERVICE: 02/10/2020 REASON FOR CONSULTATION: Bariatric evaluation HISTORY OF PRESENT ILLNESS: Amber Rodríguez is a 39-year-old female who comes in with long-standing morbid obesity. She comes in looking for the sleeve gastrectomy. She has switched her medical insurance. She had tried Weight watchers, medical supervised weight loss for 3 years. Her mother is Faby. She has past history is of glucose intolerance with diabetes. She has lower back pain, bilateral hip pain, knees, ankles, and feet from osteoarthritis. She has high blood pressure. She has chronic swelling of the feet. She has gastroesop hageal reflux disease on occasion. Her highest weight is present at 436 pounds. She stopped smoking 4 months ago. She denies abdominal surgeries. She denies previous deep venous thrombosis. She still has her gallbladder. She reports history of right upper quadrant abdominal pain. At height of 5 feet 4.25 inches, her ideal body weight is 144 pounds. She comes in highest weight of 435 pounds from 394 pounds. She has gained 41 pounds in 2 years. Body mass index is up from 67.3 to 74.3. She is 291 pounds overweight. PAST MEDICAL HISTORY: 1. Morbid obesity due to excess calories 2. Body mass index of 74.3. 3. Osteoarthritis of the knees. 4. Osteoarthritis of the hips. 5. Osteoarthritis of the lower back. 6. Obstructive sleep apnea. 7. Hypertensive heart disease. 8. Gastroesophageal reflux disease 9. Diabetes type 2 10. Osteoarthritis of the bilateral ankles. PAST SURGICAL HISTORY: 1. section 2. Uterine ablation 3. Tonsillectomy 4. Orthopedic procedure 5. Eustachian tubes 6. Bilateral carpal tunnel release HOME MEDICATIONS: Home Medications Medication Instructions Recorded Confirmed Ibuprofen [Motrin Ib] 600 - 800 mg PO TID PRN 01/16/19 01/16/19 Ergocalciferol [Vitamin D2 50,000 unit PO WEEKLY 02/15/20 02/15/20 (DRISDOL)] Previous Rx's Medication Instructions Recorded Amoxic-Pot Clav 875-125Mg 1 tab PO Q12HR #20 tablet 01/16/19 [Augmentin 875-125] Sulfamethox-Tmp 800-160Mg [Bactrim 2 tab PO BID #40 tab 01/16/19 DS 800-160 mg] predniSONE 50 mg PO DAILY #5 tab 01/16/19 ALLERGIES: Denies. SOCIAL HISTORY: History of tobacco abuse. FAMILY HISTORY: No family history of ulcerative colitis disease or Crohn's disease. Family history of morbid obesity. No lupus in the family. No reports of stomach or esophageal cancer. Family history of diabetes type 2. REVIEW OF ORGAN SYSTEMS: CONSTITUTIONAL: At height of 5 feet 4.25 inches, her ideal body weight is 144 pounds. She comes in highest weight of 435 pounds from 394 pounds. She has gained 41 pounds in 2 years. Body mass index is up from 67.3 to 74.3. She is 291 pounds overweight. HEENT: Denies any active troubles with vision or hearing. No troubles with swallowing. ENDOCRINE: Has diabetes. No hypothyroidism. CARDIOVASCULAR: No reports of palpitations or heart attacks or chest pain. RESPIRATORY: Has daytime somnolence. No asthma. Has obstructive sleep apnea. GI: Denies any bright red blood per rectum. No diarrhea or constipation. Has gastroesophageal reflux disease. Has fatty food intolerance. MUSCULOSKELETAL: Has lower back pain and joint pain. Has osteoarthritis of the knees. NEURO: No headaches. No seizure disorders. PSYCH: Has depression. Has anxiety. No suicidal ideation. RHEUMATOLOGIC: No lupus. No rheumatoid arthritis. HEMATOLOGIC: Denies any abnormal bleeding or bruising. No personal history of DVTs. SKIN: No rash. No skin cancer. PHYSICAL EXAM: VITAL SIGNS: Height 5 foot 4.25 inches, weight 435 pounds. BMI 74.3 Vital Signs Temp 98.5 F 02/10/20 14:15 Pulse 108 H 02/10/20 14:15 Resp 16 02/10/20 14:15 BP 149/91 02/10/20 14:15 Pulse Ox GENERAL: Well-developed in no acute distress. HEENT: No scleral icterus. Extraocular movements grossly intact. Hears conversational speech. No nasal drainage. NECK: Supple without lymphadenopathy. CHEST: Nonlabored respirations with equal bilateral excursions. CARDIOVASCULAR: Tachycardic. Distal 2+ pulses. ABDOMEN: Obese, soft, nontender, nondistended. MUSCULOSKELETAL: No clubbing, cyanosis. Gross strength 5/5 distal lower extremities. 3+ pre-tibial pitting edema. NEURO: No focal or lateralizing signs. Cranial nerves 2 through 12 grossly within normal limits. PSYCH: Appropriate affect. Alert and oriented to person, place and time. SKIN: Good skin turgor. Well perfused. ASSESSMENT: 1. Morbid obesity due to excess calories 2. Body mass index of 74.3. 3. Osteoarthritis of the knees. 4. Osteoarthritis of the hips. 5. Osteoarthritis of the lower back. 6. Obstructive sleep apnea. 7. Hypertensive heart disease. 8. Gastroesophageal reflux disease 9. Diabetes type 2 10. Osteoarthritis of the bilateral ankles. 11. Bilateral lower extremity edema. 12. Right upper quadrant abdominal pain 13. Supraventricular tachycardia PLAN: 1. Surgical options including a band, gastric bypass, sleeve gastrectomy were described in detail. Alternatives such as gastric balloon including duodenal switch were described. 2. The [place] bariatric surgical collaborative data and outcomes calculator were described with surgical options. 3. Recommend bariatric metabolic panel to evaluate for micro- including macronutrient deficiencies. 4. For history of daytime somnolence, recommend evaluation and treatment for sleep apnea. 5. Dietary surveillance and counseling was reviewed, I have asked increased protein intake to at least 65 grams daily. 6. Will need cardiac risk assessment. 7. Recommend medical risk assessment. 8. Psych assessment per insurance guidelines. 9. Follow up upon completion of upper endoscopy. 10. Recommend 12-lead EKG with family history of hypertensive heart disease. 11. Recommend upper endoscopy. 12. Recommend right upper quadrant ultrasound and HIDA scan for gallbladder Thank you for this consultation. Past Medical History Past Medical History: Hypertension Additional Past Medical History / Comment(s): leg issues, restless leg syndrome, states she was using a diuretic for HTN but was d/c by Dr. Cardenas History of Any Multi-Drug Resistant Organisms: None Reported Past Surgical History: No Surgical Hx Reported Past Anesthesia/Blood Transfusion Reactions: No Reported Reaction Additional Past Anesthesia/Blood Transfusion Reaction / Comm: No problems being put under for dental extractions Past Psychological History: No Psychological Hx Reported Smoking Status: Current every day smoker Past Alcohol Use History: Occasional Additional Past Alcohol Use History / Comment(s): smokes 3-4 cigarettes/day Past Drug Use History: None Reported - Past Family History Mother Family Medical History: No Reported History Additional Family Medical History / Comment(s): mother had bariatric surgery Father Family Medical History: No Reported History Surgical - Exam Vital Signs Temp Pulse Resp BP 98.5 F 108 H 16 149/91 02/10/20 14:15 02/10/20 14:15 02/10/20 14:15 02/10/20 14:15 Results - Labs 02/10/20 14:53 02/10/20 14:53 Bariatric Checklist Checklist: Plan: Checklist: EGD: 1. Hiatal hernia: 2. H. Pylori: HgbA1c: Vitamin D: Smoking: Current every day smoker Primary care physician referral: stephanie Psychiatry clearance: Cardiology clearance: Sleep study: Diet journal: VTE risk score: VTE risk level: Rehab needs at discharge:
[2020-02-10 15:14] LABS: Anisocytosis Slight; HCT 42.9 % (34.0-46.0); HGB 12.8 gm/dL (11.4-16.0); Hypochromasia Moderate; MCH 21.7 pg (25.0-35.0); MCHC 29.9 g/dL (31.0-37.0); MCV 72.7 fL (80.0-100.0); Mean Platelet Volume 8.3; Microcytosis Moderate; Platelet Count 281 k/uL (150-450); RBC 5.91 m/uL (3.80-5.40); RDW 16.9 % (11.5-15.5); WBC 9.7 k/uL (3.8-10.6)
[2020-02-10 15:23] LABS: Partial Thromboplastin Time 23.2 sec (22.0-30.0); Prothrombin Time 10.2 sec (9.0-12.0)
[2020-02-11 04:39] LABS: % Iron Saturation 7.64 (12.00-45.00); African American GFR (CKD) 83.3 (60.0-200.0); Albumin 4.4 g/dL (3.80-4.90); Albumin/Globulin Ratio 1.33 (1.60-3.17); Anion Gap 8.6 mmol/L (4.00-12.00); Calcium 9.4 mg/dL (8.7-10.3); Carbon Dioxide 25.4 mmol/L (21.6-31.8); Chol/HDL Ratio 4.7; Ferritin 13.9 ng/mL (10.0-291.0); Folate, Serum 15.2 ng/mL; Globulin 3.3 g/dL (1.6-3.3); LDL Cholesterol,Calculated 96.2 mg/dL (0.0-131.0); Magnesium 1.9 mg/dL (1.5-2.4); Non-African American GFR(CKD) 71.9 (60.0-200.0); Phosphorus 3.9 mg/dL (2.4-5.1); Potassium 4.1 mmol/L (3.5-5.5); Total Bilirubin 0.5 mg/dL (0.3-1.2); Total Protein 7.7 g/dL (6.2-8.2); VLDL Calculation 40.8 mg/dL (5.00-40.00)
[2020-02-11 04:40] LABS: Hemoglobin A1C 6.4 % (4.0-6.0)
[2020-02-12 13:18] LABS: Zinc, Serum 71 ug/dL (60-130)
[2020-02-15 08:46] LABS: Vitamin A 50 ug/dL (38-106)
[2020-02-15 11:29] LABS: Vit B1(Thiamine) 60 ug/L (38-122)
[2020-02-16 19:47] LABS: Selenium 115 mcg/L (63-160)
== END | disposition home or self-care (01) ==
LOC: BARWHC3 13:36
PROVIDERS: ATTEND Surgery Plastic and Reconstructive Surgery
DX: E66.01 Morbid (severe) obesity due to excess calories (principal); M17.0 Bilateral primary osteoarthritis of knee; M16.0 Bilateral primary osteoarthritis of hip; G47.33 Obstructive sleep apnea (adult) (pediatric); I11.9 Hypertensive heart disease without heart failure; K21.9 Gastro-esophageal reflux disease without esophagitis; E11.9 Type 2 diabetes mellitus without complications; I10 Essential (primary) hypertension; M19.072 Primary osteoarthritis, left ankle and foot; M19.071 Primary osteoarthritis, right ankle and foot; R10.11 Right upper quadrant pain; I47.1 Supraventricular tachycardia; Z68.45 Body mass index [BMI] 70 or greater, adult; M19.91 Primary osteoarthritis, unspecified site; Z79.899 Other long term (current) drug therapy; Z79.891 Long term (current) use of opiate analgesic; Z79.52 Long term (current) use of systemic steroids
CPT/HCPCS: 84255; 84134; 84425; 80061; 80053; 82607; 82728; 82525; 82746; 83540; 83550; 83735; 84100; 84443; 84590; 84630; 85027; 85610; 85730; 82306; 83970; 83036; 36415; G0463; 99211

== ENCOUNTER 2020-07-14 18:27 | Emergency (ER) | payer OTHER ==
[2020-07-14] MEDS ORDERED: SODIUM CHLORIDE 0.9% 500 ML 500 ML IV STA (19:45)
[2020-07-14] MEDS ORDERED: PANTOPRAZOLE 40 MG/10 ML VIAL IVP STA (19:45)
[2020-07-14] MEDS ORDERED: ACETAMINOPHEN TAB 500 MG TAB PO STA (19:45)
[2020-07-14 20:17] LABS: Partial Thromboplastin Time 23.8 sec (22.0-30.0)
[2020-07-14 20:19] LABS: ALT 38 U/L (4-34); AST 75 U/L (14-36); African American GFR (CKD) >90 (>60 ml/min/1.73 sqM); Albumin 3.9 g/dL (3.5-5.0); Alkaline Phosphatase 105 U/L (38-126); Anion Gap 8 mmol/L; Blood Urea Nitrogen 6 mg/dL (7-17); Calcium 8.8 mg/dL (8.4-10.2); Carbon Dioxide 28 mmol/L (22-30); Chloride 100 mmol/L (98-107); Glucose 105 mg/dL (74-99); Lipase 150 U/L (23-300); Non-African American GFR(CKD) 80 (>60 ml/min/1.73 sqM); Potassium 4.5 mmol/L (3.5-5.1); Sodium 136 mmol/L (137-145); Total Bilirubin 0.6 mg/dL (0.2-1.3); Total Protein 8.1 g/dL (6.3-8.2)
[2020-07-14 20:33] LABS: Appearance,Urine Clear (Clear); Bilirubin,Urine Negative (Negative); Blood,Urine Negative (Negative); Color,Urine Yellow; Glucose,Urine (UA) Negative (Negative); Ketones,Urine Negative (Negative); Leukocyte Esterase,Urine Small (Negative); Nitrite,Urine Negative (Negative); PH, Urine 6.5 (5.0-8.0); Protein,Urine Trace (Negative); RBC,Urine <1 /hpf (0-5); Specific Gravity,Urine 1.015 (1.001-1.035); Squamous Epithelial Cell,Urine 3 /hpf (0-4); WBC,Urine 1 /hpf (0-5)
[2020-07-14 20:34] LABS: Anisocytosis Slight; HCT 43.3 % (34.0-46.0); HGB 13.6 gm/dL (11.4-16.0); Hypochromasia Slight; MCHC 31.4 g/dL (31.0-37.0); MCV 69.9 fL (80.0-100.0); Mean Platelet Volume 8.4; Microcytosis Marked; RBC 6.19 m/uL (3.80-5.40); RDW 16.6 % (11.5-15.5); WBC 6.8 k/uL (3.8-10.6)
--- NOTE | 2020-07-14 20:35 | ED ---
General Adult HPI - General Chief complaint: Fever Stated complaint: Weakness, possible GI bleed, Abd pain Time Seen by Provider: 07/14/20 19:22 Source: patient Mode of arrival: wheelchair Limitations: no limitations - History of Present Illness Initial comments: Patient is a 39-year-old female with history of hypertension, presenting to the emergency Department with complaints of abdominal pain and a 4 days of dark stools. She states her stools have been normal in consistency however they have been dark and black. Patient is also complaining of generalized abdominal discomfort, "upset sour feeling." She denies any specific area of pain. She d enies history of abdominal surgeries. She does admit to some mild nausea, no vomiting, no diarrhea. She denies any chest pain or shortness of breath. She states she feels generalized weakness. She denies history of fever, chills. She denies any cough, she denies being this time. She has no further complaints at this time. Upon arrival to the ER, she did arrive febrile to 101, tachycardia at 118, rest of vitals normal. - Related Data Home Medications Medication Instructions Recorded Confirmed Albuterol Sulfate [Proair Hfa] 2 puff INHALATION RT-Q6H PRN 07/14/20 07/14/20 Ibuprofen [Motrin] 800 mg PO TID PRN 07/14/20 07/14/20 Phentermine HCl 37.5 mg PO DAILY 07/14/20 07/14/20 hydroCHLOROthiazide 25 mg PO DAILY 07/14/20 07/14/20 metFORMIN HCL [Glucophage] 500 mg PO DAILY 07/14/20 07/14/20 traMADol HCL [Ultram] 50 mg PO TID PRN 07/14/20 07/14/20 Allergies Allergy/AdvReac Type Severity Reaction Status Date / Time No Known Allergies Allergy Verified 07/14/20 20:20 Review of Systems ROS Statement: Those systems with pertinent positive or pertinent negative responses have been documented in the HPI. ROS Other: All systems not noted in ROS Statement are negative. Past Medical History Past Medical History: Hypertension Additional Past Medical History / Comment(s): leg issues, restless leg syndrome, states she was using a diuretic for HTN but was d/c by Dr. Cardenas History of Any Multi-Drug Resistant Organisms: None Reported Past Surgical History: No Surgical Hx Reported Past Anesthesia/Blood Transfusion Reactions: No Reported Reaction Additional Past Anesthesia/Blood Transfusion Reaction / Comment(s): No problems being put under for dental extractions Past Psychological History: No Psychological Hx Reported Smoking Status: Former smoker Past Alcohol Use History: Occasional Past Drug Use History: None Reported - Past Family History Mother Family Medical History: No Reported History Additional Family Medical History / Comment(s): mother had bariatric surgery Father Family Medical History: No Reported History General Exam - General Exam Comments Initial Comments: GENERAL: Patient is well-developed and well-nourished. Patient is nontoxic and in no acute distress. HEAD: Atraumatic, normocephalic. EYES: Pupils equal round and reactive to light, extraocular movements intact, sclera anicteric, conjunctiva are normal. Eyelids were unremarkable. ENT: TMs normal, nares patent, oropharynx clear without exudates. Moist mucous membranes. NECK: Normal range of motion, supple without lymphadenopathy or JVD. LUNGS: Unlabored respirations. Breath sounds clear to auscultation bilaterally and equal. No wheezes rales or rhonchi. HEART: Regular rate and rhythm without murmurs, rubs or gallops. ABDOMEN: Generalized discomfort, no specific area pain. Soft, normoactive bowel sounds. No guarding, no rebound. No masses appreciated. : Deferred MUSCULOSKELETAL: Normal extremities with adequate strength and normal range of motion, no pitting or edema. No clubbing or cyanosis. NEUROLOGICAL: Patient is alert and oriented x 3. Motor and sensory are also intact. Cranial nerves II through XII grossly intact. Symmetrical smile. Normal speech, normal gait. PSYCH: Normal mood, normal affect. SKIN: Warm, Dry, normal turgor, no rashes or lesions noted. Limitations: no limitations Course Vital Signs 07/14/20 07/14/20 07/14/20 18:30 19:30 20:00 Temperature 101.0 F H 100.6 F H Pulse Rate 118 H 110 H 106 H Respiratory 18 16 16 Rate Blood Pressure 148/88 161/101 O2 Sat by Pulse 96 Oximetry 07/14/20 07/14/20 21:00 22:00 Temperature 98.7 F Pulse Rate 91 100 Respiratory 18 18 Rate Blood Pressure 125/96 O2 Sat by Pulse 97 97 Oximetry Medical Decision Making - Medical Decision Making Patient is a 39-year-old female here for black stools for the past 4 days as well as an upset stomach. She did arrive febrile however denies any specific area of abdominal pain, denies cough or chest pain, sore throat. Labs show a normal white count, hemoglobin is stable at 13.6, kidney function was stable, lactic acid is 1.1, urine is normal, stool occult blood was negative. Patient was given some fluids, Protonix and Tylenol. She is resting comfortably in the ER. I discussed these findings with the patient. She needs to follow up with her GI doctor regarding the black stools, the fever is most likely viral in nature. I did give her return parameters. She is stable for discharge at this time. She is in agreement with this plan of care. Return parameters were discussed with her and she verbalized understanding. Case discussed with Dr. Beltran. - Lab Data Result diagrams: 07/14/20 19:50 07/14/20 19:50 Lab Results 07/14/20 07/14/20 07/14/20 Range/Units 19:50 19:50 19:50 WBC 6.8 (3.8-10.6) k/uL RBC 6.19 H (3.80-5.40) m/uL Hgb 13.6 (11.4-16.0) gm/dL Hct 43.3 (34.0-46.0) % MCV 69.9 L (80.0-100.0) fL MCH 22.0 L (25.0-35.0) pg MCHC 31.4 (31.0-37.0) g/dL RDW 16.6 H (11.5-15.5) % Plt Count (150-450) k/uL MPV 8.4 Neutrophils % (Manual) 47 % Lymphocytes % (Manual) 46 % Monocytes % (Manual) 6 % Eosinophils % (Manual) 1 % Neutrophils # (Manual) 3.20 (1.3-7.7) k/uL Lymphocytes # (Manual) 3.13 (1.0-4.8) k/uL Monocytes # (Manual) 0.41 (0-1.0) k/uL Eosinophils # (Manual) 0.07 (0-0.7) k/uL Nucleated RBCs 0 (0-0) /100 WBC Polychromasia Present Hypochromasia Slight Anisocytosis Slight Microcytosis Marked PT 10.0 (9.0-12.0) sec INR 1.0 (<1.2) APTT 23.8 (22.0-30.0) sec Sodium (137-145) mmol/L Potassium (3.5-5.1) mmol/L Chloride (98-107) mmol/L Carbon Dioxide (22-30) mmol/L Anion Gap mmol/L BUN (7-17) mg/dL Creatinine (0.52-1.04) mg/dL Est GFR (CKD-EPI)AfAm (>60 ml/min/1.73 sqM) Est GFR (CKD-EPI)NonAf (>60 ml/min/1.73 sqM) Glucose (74-99) mg/dL Plasma Lactic Acid Yahir (0.7-2.0) mmol/L Calcium (8.4-10.2) mg/dL Total Bilirubin (0.2-1.3) mg/dL AST (14-36) U/L ALT (4-34) U/L Alkaline Phosphatase (38-126) U/L Total Protein (6.3-8.2) g/dL Albumin (3.5-5.0) g/dL Lipase (23-300) U/L Urine Color Urine Appearance (Clear) Urine pH (5.0-8.0) Ur Specific [place] (1.001-1.035) Urine Protein (Negative) Urine Glucose (UA) (Negative) Urine Ketones (Negative) Urine Blood (Negative) Urine Nitrite (Negative) Urine Bilirubin (Negative) Urine Urobilinogen (<2.0) mg/dL Ur Leukocyte Esterase (Negative) Urine RBC (0-5) /hpf Urine WBC (0-5) /hpf Ur Squamous Epith Cells (0-4) /hpf Urine HCG, Qual (Not Detectd) Stool Occult Blood Negative (Negative) Blood Type Blood Type Recheck Bld Type Recheck Status Antibody Screen Spec Expiration Date 07/14/20 07/14/20 07/14/20 Range/Units 19:50 19:50 19:50 WBC (3.8-10.6) k/uL RBC (3.80-5.40) m/uL Hgb (11.4-16.0) gm/dL Hct (34.0-46.0) % MCV (80.0-100.0) fL MCH (25.0-35.0) pg MCHC (31.0-37.0) g/dL RDW (11.5-15.5) % Plt Count (150-450) k/uL MPV Neutrophils % (Manual) % Lymphocytes % (Manual) % Monocytes % (Manual) % Eosinophils % (Manual) % Neutrophils # (Manual) (1.3-7.7) k/uL Lymphocytes # (Manual) (1.0-4.8) k/uL Monocytes # (Manual) (0-1.0) k/uL Eosinophils # (Manual) (0-0.7) k/uL Nucleated RBCs (0-0) /100 WBC Polychromasia Hypochromasia Anisocytosis Microcytosis PT (9.0-12.0) sec INR (<1.2) APTT (22.0-30.0) sec Sodium 136 L (137-145) mmol/L Potassium 4.5 (3.5-5.1) mmol/L Chloride 100 (98-107) mmol/L Carbon Dioxide 28 (22-30) mmol/L Anion Gap 8 mmol/L BUN 6 L (7-17) mg/dL Creatinine 0.92 (0.52-1.04) mg/dL Est GFR (CKD-EPI)AfAm >90 (>60 ml/min/1.73 sqM) Est GFR (CKD-EPI)NonAf 80 (>60 ml/min/1.73 sqM) Glucose 105 H (74-99) mg/dL Plasma Lactic Acid Yahir (0.7-2.0) mmol/L Calcium 8.8 (8.4-10.2) mg/dL Total Bilirubin 0.6 (0.2-1.3) mg/dL AST 75 H (14-36) U/L ALT 38 H (4-34) U/L Alkaline Phosphatase 105 (38-126) U/L Total Protein 8.1 (6.3-8.2) g/dL Albumin 3.9 (3.5-5.0) g/dL Lipase 150 (23-300) U/L Urine Color Yellow Urine Appearance Clear (Clear) Urine pH 6.5 (5.0-8.0) Ur Specific [place] 1.015 (1.001-1.035) Urine Protein Trace H (Negative) Urine Glucose (UA) Negative (Negative) Urine Ketones Negative (Negative) Urine Blood Negative (Negative) Urine Nitrite Negative (Negative) Urine Bilirubin Negative (Negative) Urine Urobilinogen 2.0 (<2.0) mg/dL Ur Leukocyte Esterase Small H (Negative) Urine RBC <1 (0-5) /hpf Urine WBC 1 (0-5) /hpf Ur Squamous Epith Cells 3 (0-4) /hpf Urine HCG, Qual Not Detected (Not Detectd) Stool Occult Blood (Negative) Blood Type Blood Type Recheck Bld Type Recheck Status Antibody Screen Spec Expiration Date 07/14/20 07/14/20 Range/Units 19:50 19:50 WBC (3.8-10.6) k/uL RBC (3.80-5.40) m/uL Hgb (11.4-16.0) gm/dL Hct (34.0-46.0) % MCV (80.0-100.0) fL MCH (25.0-35.0) pg MCHC (31.0-37.0) g/dL RDW (11.5-15.5) % Plt Count (150-450) k/uL MPV Neutrophils % (Manual) % Lymphocytes % (Manual) % Monocytes % (Manual) % Eosinophils % (Manual) % Neutrophils # (Manual) (1.3-7.7) k/uL Lymphocytes # (Manual) (1.0-4.8) k/uL Monocytes # (Manual) (0-1.0) k/uL Eosinophils # (Manual) (0-0.7) k/uL Nucleated RBCs (0-0) /100 WBC Polychromasia Hypochromasia Anisocytosis Microcytosis PT (9.0-12.0) sec INR (<1.2) APTT (22.0-30.0) sec Sodium (137-145) mmol/L Potassium (3.5-5.1) mmol/L Chloride (98-107) mmol/L Carbon Dioxide (22-30) mmol/L Anion Gap mmol/L BUN (7-17) mg/dL Creatinine (0.52-1.04) mg/dL Est GFR (CKD-EPI)AfAm (>60 ml/min/1.73 sqM) Est GFR (CKD-EPI)NonAf (>60 ml/min/1.73 sqM) Glucose (74-99) mg/dL Plasma Lactic Acid Yahir 1.1 (0.7-2.0) mmol/L Calcium (8.4-10.2) mg/dL Total Bilirubin (0.2-1.3) mg/dL AST (14-36) U/L ALT (4-34) U/L Alkaline Phosphatase (38-126) U/L Total Protein (6.3-8.2) g/dL Albumin (3.5-5.0) g/dL Lipase (23-300) U/L Urine Color Urine Appearance (Clear) Urine pH (5.0-8.0) Ur Specific [place] (1.001-1.035) Urine Protein (Negative) Urine Glucose (UA) (Negative) Urine Ketones (Negative) Urine Blood (Negative) Urine Nitrite (Negative) Urine Bilirubin (Negative) Urine Urobilinogen (<2.0) mg/dL Ur Leukocyte Esterase (Negative) Urine RBC (0-5) /hpf Urine WBC (0-5) /hpf Ur Squamous Epith Cells (0-4) /hpf Urine HCG, Qual (Not Detectd) Stool Occult Blood (Negative) Blood Type AB Positive Blood Type Recheck AB Pos Bld Type Recheck Status No Antibody Screen NEGATIVE Spec Expiration Date 07/17/20202349 Disposition Clinical Impression: Dark stools, Viral syndrome Disposition: HOME SELF-CARE Condition: Stable Instructions (If sedation given, give patient instructions): Melena (ED) Additional Instructions: Please return to the Emergency Department if symptoms worsen or any other concerns. Follow-up with your PCP as well as GI doctor as discussed. Continue taking Tylenol or Motrin for any discomfort or fever. Is patient prescribed a controlled substance at d/c from ED?: No Referrals: Malachi Merino MD [Primary Care Provider] - 1-2 days Arnold Siddiqui MD [STAFF PHYSICIAN] - 1-2 days
[2020-07-14 20:57] LABS: Eosinophils # (M) 0.07 k/uL (0-0.7); Lymphocytes # (M) 3.13 k/uL (1.0-4.8); Monocytes # (M) 0.41 k/uL (0-1.0); Neutrophils % (M) 47 %; Nucleated Red Blood Cells 0 /100 WBC (0-0); Total Cells Counted 100
[2020-07-14 20:58] LABS: Polychromasia Present
[2020-07-14 21:05] VITALS: RESP 18
[2020-07-14 22:01] VITALS: BP 125/96; PULSE 100; TEMP 98.7
== END 2020-07-14 22:30 | disposition home or self-care (01) ==
LOC: EC 18:27
DX: B34.9 Viral infection, unspecified (principal); K92.1 Melena; I10 Essential (primary) hypertension; R10.84 Generalized abdominal pain; R11.0 Nausea; R00.0 Tachycardia, unspecified; Z79.899 Other long term (current) drug therapy; Z87.891 Personal history of nicotine dependence
CPT/HCPCS: 36415; 86900; 86901; 80053; 83605; 83690; 85025; 85610; 85730; 86850; 82272; 81001; 81025; 87040; 99283; 96374; 96361; C9113

== ENCOUNTER 2020-10-06 06:52 | Day surgery (SDC) | payer OTHER ==
[2020-10-04 14:51] VITALS: BMI 73.7
--- NOTE | 2020-10-06 06:28 | P.GSHP ---
History of Present Illness H&P Date: 10/06/20 CHIEF COMPLAINT: Gastroesophageal reflux disease HISTORY OF PRESENT ILLNESS: Amber Rodríguez is a 40-year-old female who comes in with long-standing morbid obesity. She has gastroesophageal reflux disease including epigastric and right upper quadrant abdominal pain. She comes in looking for the sleeve gastrectomy. She has switched her medical insurance. She had tried Weight watchers, medical supervised weight loss for 3 years. Her mother is Faby. She has past history is of glucose intolerance with diabetes. She has lower back pain, bilateral hip pain, knees, ankles, and feet from osteoarthritis. She has high blood pressure. She has chronic swelling of the feet. Her highest weight is present at 436 pounds. She stopped smoking 4 months ago. She denies abdominal surgeries. She denies previous deep venous thrombosis. She still has her gallbladder. She reports history of right upper quadrant abdominal pain. She presents for evaluation and management of her abdominal pain and reflux disease. At height of 5 feet 4.25 inches, her ideal body weight is 144 pounds. She comes in highest weight of 435 pounds from 394 pounds. She has gained 41 pounds in 2 years. Body mass index is up from 67.3 to 74.3. She is 291 pounds overweight. PAST MEDICAL HISTORY: 1. Morbid obesity due to excess calories 2. Body mass index of 74.3. 3. Osteoarthritis of the knees. 4. Osteoarthritis of the hips. 5. Osteoarthritis of the lower back. 6. Obstructive sleep apnea. 7. Hypertensive heart disease. 8. Gastroesophageal reflux disease 9. Diabetes type 2 10. Osteoarthritis of the bilateral ankles. PAST SURGICAL HISTORY: 1. section 2. Uterine ablation 3. Tonsillectomy 4. Orthopedic procedure 5. Eustachian tubes 6. Bilateral carpal tunnel release HOME MEDICATIONS: See list and reviewed ALLERGIES: Denies. SOCIAL HISTORY: History of tobacco abuse. FAMILY HISTORY: No family history of ulcerative colitis disease or Crohn's disease. Family history of morbid obesity. No lupus in the family. No reports of stomach or esophageal cancer. Family history of diabetes type 2. REVIEW OF ORGAN SYSTEMS: CONSTITUTIONAL: At height of 5 feet 4.25 inches, her ideal body weight is 144 pounds. She comes in highest weight of 435 pounds from 394 pounds. She has gained 41 pounds in 2 years. Body mass index is up from 67.3 to 74.3. She is 291 pounds overweight. HEENT: Denies any active troubles with vision or hearing. No troubles with swallowing. ENDOCRINE: Has diabetes. No hypothyroidism. CARDIOVASCULAR: No reports of palpitations or heart attacks or chest pain. RESPIRATORY: Has daytime somnolence. No asthma. Has obstructive sleep apnea. GI: Denies any bright red blood per rectum. No diarrhea or constipation. Has gastroesophageal reflux disease. Has fatty food intolerance. MUSCULOSKELETAL: Has lower back pain and joint pain. Has osteoarthritis of the knees. NEURO: No headaches. No seizure disorders. PSYCH: Has depression. Has anxiety. No suicidal ideation. RHEUMATOLOGIC: No lupus. No rheumatoid arthritis. HEMATOLOGIC: Denies any abnormal bleeding or bruising. No personal history of DVTs. SKIN: No rash. No skin cancer. PHYSICAL EXAM: VITAL SIGNS: Height 5 foot 4.25 inches, weight 435 pounds. BMI 74.3 GENERAL: Well-developed in no acute distress. HEENT: No scleral icterus. Extraocular movements grossly intact. Hears conversational speech. No nasal drainage. NECK: Supple without lymphadenopathy. CHEST: Nonlabored respirations with equal bilateral excursions. CARDIOVASCULAR: Tachycardic. Distal 2+ pulses. ABDOMEN: Obese, soft, nontender, nondistended. MUSCULOSKELETAL: No clubbing, cyanosis. Gross strength 5/5 distal lower extremities. 3+ pre-tibial pitting edema. NEURO: No focal or lateralizing signs. Cranial nerves 2 through 12 grossly within normal limits. PSYCH: Appropriate affect. Alert and oriented to person, place and time. SKIN: Good skin turgor. Well perfused. ASSESSMENT: 1. Gastroesophageal reflux disease 2. Body mass index of 74.3. 3. Osteoarthritis of the knees. 4. Osteoarthritis of the hips. 5. Osteoarthritis of the lower back. 6. Obstructive sleep apnea. 7. Hypertensive heart disease. 8. Morbid obesity due to excess calories 9. Diabetes type 2 10. Osteoarthritis of the bilateral ankles. 11. Bilateral lower extremity edema. 12. Right upper quadrant abdominal pain 13. Supraventricular tachycardia PLAN: 1. Recommend upper endoscopy. 2. Recommend 12-lead EKG with family history of hypertensive heart disease. 3. Surgical options including a band, gastric bypass, sleeve gastrectomy were described in detail. Alternatives such as gastric balloon including duodenal switch were described. 4. Recommend right upper quadrant ultrasound and HIDA scan for gallbladder Past Medical History Past Medical History: Diabetes Mellitus, Hypertension Additional Past Medical History / Comment(s): leg issues, restless leg syndrome, History of Any Multi-Drug Resistant Organisms: None Reported Past Surgical History: No Surgical Hx Reported Additional Past Surgical History / Comment(s): DENTAL WORK UNDER ANESTHESIA Past Anesthesia/Blood Transfusion Reactions: No Reported Reaction Additional Past Anesthesia/Blood Transfusion Reaction / Comment(s): No problems being put under for dental extractions Smoking Status: Former smoker - Past Family History Mother Family Medical History: No Reported History Additional Family Medical History / Comment(s): mother had bariatric surgery Father Family Medical History: No Reported History Medications and Allergies Home Medications Medication Instructions Recorded Confirmed Type Albuterol Sulfate [Proair Hfa] 2 puff INHALATION RT-Q6H PRN 07/14/20 10/04/20 History Ibuprofen [Motrin] 800 mg PO TID PRN 07/14/20 10/04/20 History Phentermine HCl 37.5 mg PO DAILY 07/14/20 10/04/20 History metFORMIN HCL [Glucophage] 500 mg PO DAILY 07/14/20 10/04/20 History traMADol HCL [Ultram] 50 mg PO TID PRN 07/14/20 10/04/20 History Allergies Allergy/AdvReac Type Severity Reaction Status Date / Time No Known Allergies Allergy Verified 10/04/20 14:45
[~2020-10-06 06:52] MED LIST: LACTATED RINGERS 1,000 ML IV SCH
[2020-10-06 07:22] VITALS: TEMP 97.3
[2020-10-06 07:32] LABS: Glucose,Whole Blood 100 mg/dL (75-99)
[2020-10-06] MEDS ORDERED: PROPOFOL 10 MG/ML 20 ML VIAL IV ONE (07:56)
--- NOTE | 2020-10-06 08:16 | P.PCN ---
Date of Procedure: 10/06/20 Description of Procedure: PREOPERATIVE DIAGNOSIS: Gastroesophageal reflux disease Epigastric abdominal pain Morbid obesity due to excess calories, BMI 82.4 POSTOPERATIVE DIAGNOSIS: Gastroesophageal reflux disease Epigastric abdominal pain Morbid obesity due to excess calories, BMI 82.4 Gastritis Superficial gastric ulceration OPERATION: Esophagogastroduodenoscopy with biopsies along antrum. SURGEON: Mallory Silva MD ANESTHESIA: MAC. INDICATIONS: The patient is a 40-year-old female who presents with a history of reflux disease. Benefits and risks of the procedure were described. Informed consent was obtained. DESCRIPTION: The patient was brought into the endoscopy suite and laid in the left lateral decubitus position. An Olympus gastroscope was passed along the posterior oropharynx down to the distal esophagus where the squamocolumnar junction was encountered at 40 cm from the incisors. The stomach was entered and no bile reflux was found. Additional findings are listed below. Biopsies with cold forceps were obtained of the antrum. The first through third portion of the duodenum was examined and unremarkable. Retroflexion of the scope confirmed Hill grade 1 lower esophageal valve. The squamocolumnar junction demonstrated LA grade A erosive esophagitis. The stomach was desufflated. The patient tolerated the procedure well. FINDINGS: Squamocolumnar junction 40 cm from the incisors. Diaphragmatic hiatus at 40 cm. Hill grade 1 lower esophageal valve. LA grade A erosive esophagitis. No active duodenitis. Chronic gastritis with superficial ulceration RECOMMENDATIONS: Upper endoscopy as needed. Plan - Discharge Summary Discharge Rx Participant: No New Discharge Prescriptions: Continue metFORMIN HCL [Glucophage] 500 mg PO DAILY Albuterol Sulfate [Proair Hfa] 2 puff INHALATION RT-Q6H PRN PRN Reason: Shortness Of Breath traMADol HCL [Ultram] 50 mg PO TID PRN PRN Reason: Pain Phentermine HCl 37.5 mg PO DAILY Ibuprofen [Motrin] 800 mg PO TID PRN PRN Reason: Pain Discharge Medication List Albuterol Sulfate [Proair Hfa] 2 puff INHALATION RT-Q6H PRN 07/14/20 [History] Ibuprofen [Motrin] 800 mg PO TID PRN 07/14/20 [History] Phentermine HCl 37.5 mg PO DAILY 07/14/20 [History] metFORMIN HCL [Glucophage] 500 mg PO DAILY 11/12/20 [History] traMADol HCL [Ultram] 50 mg PO TID PRN 07/14/20 [History] Follow up Appointment(s)/Referral(s): [facility] [NON-STAFF] - 10/12/20 Patient Instructions/Handouts: *Sur[facility] - (Anesthesia) Endoscopy Discharge Instructions, *Surgery [facility] - (Anesthesia) Discharge Instructions Outpatient Surgery, Upper Endoscopy (DC), Gastritis (ED), Diet for Stomach Ulcers and Gastritis (GEN), Gastroesophageal Reflux Disease (DC) Discharge Disposition: HOME SELF-CARE
[2020-10-06 08:25] LABS: Glucose,Whole Blood 110 mg/dL (75-99)
[2020-10-06 08:28] VITALS: RESP 14
[2020-10-06 09:04] VITALS: BP 122/74; PULSE 78
== END 2020-10-06 09:04 | disposition home or self-care (01) ==
LOC: ORWHC2ENDO 06:52
PROVIDERS: ATTEND Surgery Plastic and Reconstructive Surgery
DX: K29.50 Unspecified chronic gastritis without bleeding (principal); K21.00 Gastro-esophageal reflux disease with esophagitis, without bleeding; K22.10 Ulcer of esophagus without bleeding; K25.9 Gastric ulcer, unspecified as acute or chronic, without hemorrhage or perforation; I11.9 Hypertensive heart disease without heart failure; E11.9 Type 2 diabetes mellitus without complications; G47.33 Obstructive sleep apnea (adult) (pediatric); E66.01 Morbid (severe) obesity due to excess calories; M17.0 Bilateral primary osteoarthritis of knee; M16.0 Bilateral primary osteoarthritis of hip; Z79.84 Long term (current) use of oral hypoglycemic drugs; Z79.899 Other long term (current) drug therapy; Z68.45 Body mass index [BMI] 70 or greater, adult; Z87.891 Personal history of nicotine dependence; Z98.891 History of uterine scar from previous surgery; Z90.89 Acquired absence of other organs; Z98.890 Other specified postprocedural states; Z83.3 Family history of diabetes mellitus
CPT/HCPCS: 81025; 88305; 43239; J2704

== ENCOUNTER → 2020-10-12 | Outpatient (CLI) | payer OTHER ==
[2020-10-12 16:12] VITALS: BP 178/109; PULSE 98; RESP 20; TEMP 97.8; BMI 80.1
--- NOTE | 2020-10-12 16:30 | P.PN ---
Subjective Progress Note Date: 10/12/20 DATE OF SERVICE: 10/12/2020 CHIEF COMPLAINT: Morbid obesity HISTORY OF PRESENT ILLNESS: Amber Rodríguez is a 40-year-old female who comes in with long-standing morbid obesity. She comes in looking for the sleeve gastrectomy. In the past 3 years, she has gained significant amount of weight from 391 pounds to over 470 pounds. She had tried Weight watchers, medical supervised weight loss. She has family history of morbid obesity with her mother and sister having bariatric procedures. She has co-morbidities including obstructive sleep apnea, hypertension, and diabetes. She has lower back pain, bilateral hip pain, knees, ankles, and feet from osteoarthritis. She has gastroesophageal reflux disease on occasion. She has family history of gallbladder disease and she has intermittent right upper quadrant abdominal pain with fatty food intolerance. Her highest weight is present at 471 pounds. She stopped smoking 6 months ago. She has completed medical supervised weight loss. She has completed upper endoscopy. At height of 5 feet 4.25 inches, her ideal body weight is 144 pounds. She comes in highest weight of 471 pounds from 435 pounds, 8 months ago. She has gained 36 pounds in 8 months. Body mass index is up from 67.3 to 74.3, now 80.5. She is 327 pounds overweight. PAST MEDICAL HISTORY: 1. Morbid obesity due to excess calories 2. Body mass index of 74.3. 3. Osteoarthritis of the knees. 4. Osteoarthritis of the hips. 5. Osteoarthritis of the lower back. 6. Obstructive sleep apnea. 7. Hypertensive heart disease. 8. Gastroesophageal reflux disease 9. Diabetes mellitus type 2 10. Osteoarthritis of the bilateral ankles. PAST SURGICAL HISTORY: 1. section 2. Uterine ablation 3. Tonsillectomy 4. Orthopedic procedure 5. Eustachian tubes 6. Bilateral carpal tunnel release HOME MEDICATIONS: Home Medications Medication Instructions Recorded Confirmed Albuterol Sulfate [Proair Hfa] 2 puff INHALATION RT-Q6H PRN 07/14/20 10/12/20 Ibuprofen [Motrin] 800 mg PO TID PRN 07/14/20 10/12/20 Phentermine HCl 37.5 mg PO DAILY 07/14/20 10/12/20 metFORMIN HCL [Glucophage] 500 mg PO DAILY 07/14/20 10/12/20 traMADol HCL [Ultram] 50 mg PO TID PRN 07/14/20 10/12/20 Hydrochlorothiazide 12.5 mg PO DIRECTED 10/12/20 10/12/20 [hydroCHLOROthiazide] ALLERGIES: Denies. SOCIAL HISTORY: History of tobacco abuse. FAMILY HISTORY: No family history of ulcerative colitis disease or Crohn's disease. Family history of morbid obesity. No lupus in the family. No reports of stomach or esophageal cancer. Family history of diabetes type 2. REVIEW OF ORGAN SYSTEMS: CONSTITUTIONAL: At height of 5 feet 4.25 inches, her ideal body weight is 144 pounds. She comes in highest weight of 471 pounds from 435 pounds, 8 months ago. She has gained 80 pounds from 391 pounds in 3 years. Body mass index is up from 67.3 to 80.1. She is 327 pounds overweight. HEENT: Denies any active troubles with vision or hearing. No troubles with swallowing. ENDOCRINE: Has diabetes. No hypothyroidism. CARDIOVASCULAR: No reports of palpitations or heart attacks or chest pain. Has hypertension. RESPIRATORY: Has daytime somnolence. Has asthma. Has obstructive sleep apnea. GI: Denies any bright red blood per rectum. No diarrhea or constipation. Has gastroesophageal reflux disease. Has fatty food intolerance. MUSCULOSKELETAL: Has lower back pain and joint pain. Has osteoarthritis of the knees. Bilateral lower extremity swelling of the feet. NEURO: No headaches. No seizure disorders. PSYCH: Has depression. Has anxiety. No suicidal ideation. RHEUMATOLOGIC: No lupus. No rheumatoid arthritis. HEMATOLOGIC: Denies any abnormal bleeding or bruising. No personal history of DVTs. SKIN: No rash. No skin cancer. PHYSICAL EXAM: VITAL SIGNS: Height 5 foot 4.25 inches, weight 471 pounds. BMI 80.5 Vital Signs Temp 97.8 F 10/12/20 16:09 Pulse 98 10/12/20 16:09 Resp 20 10/12/20 16:09 BP 178/109 10/12/20 16:09 Pulse Ox GENERAL: Well-developed in no acute distress. HEENT: No scleral icterus. Extraocular movements grossly intact. Hears conversational speech. No nasal drainage. NECK: Supple without lymphadenopathy. CHEST: Nonlabored respirations with equal bilateral excursions. CARDIOVASCULAR: Regular rate and rhythm. Distal 2+ pulses. ABDOMEN: Obese, soft, nontender, nondistended. MUSCULOSKELETAL: No clubbing, cyanosis. NEURO: No focal or lateralizing signs. Cranial nerves 2 through 12 grossly within normal limits. PSYCH: Appropriate affect. Alert and oriented to person, place and time. SKIN: Good skin turgor. Well perfused. LABS: Reviewed. Iron is low. Hgb A1c elevated 6.4%. Vitamin D is low. EKG: Normal sinus rhythm. EGD FINDINGS: Squamocolumnar junction 40 cm from the incisors. Diaphragmatic hiatus at 40 cm. Hill grade 1 lower esophageal valve. LA grade A erosive esophagitis. No active duodenitis. Chronic gastritis with superficial ulceration Final Pathologic Diagnosis GASTRIC ANTRUM, BIOPSY: Mild chronic gastritis. Helicobacter pylori organisms are not identified on routine H+E sections. ASSESSMENT: 1. Morbid obesity due to excess calories 2. Body mass index of 74.3. 3. Osteoarthritis of the knees. 4. Osteoarthritis of the hips. 5. Osteoarthritis of the lower back. 6. Obstructive sleep apnea. 7. Hypertensive heart disease. 8. Gastroesophageal reflux disease 9. Diabetes type 2 10. Osteoarthritis of the bilateral ankles. 11. Bilateral lower extremity edema. 12. Right upper quadrant abdominal pain 13. Supraventricular tachycardia 14. Gastric ulcers 15. Vitamin D deficiency 16. Iron deficiency 17. Tobacco abuse disorder PLAN: 1. Recommend repeat bariatric labs. 2. Recommend vitamin D supplement 5000 units daily 3. Recommend iron indusion 4. She is looking into the sleeve gastrectomy 5. Recommend urine nicotine testing 6. Recommend psychological assessment. 7. Insurance guidelines for medical supervised weight loss described. 8. Recommend 12-lead EKG including cardiac assessment for any abnormal EKG findings. 9. She is elevated risk for complications with tobacco abuse disorder and super morbid obesity. Objective - Vital Signs Vital signs: Vital Signs Temp 97.8 F 10/12/20 16:09 Pulse 98 10/12/20 16:09 Resp 20 10/12/20 16:09 BP 178/109 10/12/20 16:09 Pulse Ox Intake & Output 10/11/20 10/12/20 10/12/20 18:59 06:59 18:59 Weight 214.277 kg
== END | disposition home or self-care (01) ==
LOC: BARWHC3 15:59
PROVIDERS: ATTEND Surgery Plastic and Reconstructive Surgery
DX: E66.01 Morbid (severe) obesity due to excess calories (principal); M17.0 Bilateral primary osteoarthritis of knee; M16.0 Bilateral primary osteoarthritis of hip; M47.9 Spondylosis, unspecified; G47.33 Obstructive sleep apnea (adult) (pediatric); I11.9 Hypertensive heart disease without heart failure; K21.9 Gastro-esophageal reflux disease without esophagitis; E11.9 Type 2 diabetes mellitus without complications; E55.9 Vitamin D deficiency, unspecified; D50.9 Iron deficiency anemia, unspecified; M19.072 Primary osteoarthritis, left ankle and foot; M19.071 Primary osteoarthritis, right ankle and foot; R60.0 Localized edema; R10.11 Right upper quadrant pain; I47.1 Supraventricular tachycardia; K25.9 Gastric ulcer, unspecified as acute or chronic, without hemorrhage or perforation; Z68.45 Body mass index [BMI] 70 or greater, adult; Z72.0 Tobacco use
CPT/HCPCS: 99211

== ENCOUNTER → 2021-04-08 | Outpatient (CLI) | payer OTHER ==
[2021-04-08 17:57] LABS: % Iron Saturation 9.11 (12.00-45.00); ALT 19 U/L (8-44); AST 23 U/L (13-35); African American GFR (CKD) 82.8 (60.0-200.0); Alkaline Phosphatase 87 U/L (41-126); Calcium 9.9 mg/dL (8.7-10.3); Carbon Dioxide 27.1 mmol/L (21.6-31.8); Chloride 102 mmol/L (96-109); Chol/HDL Ratio 6.07; Cholesterol 176 mg/dL (0-200); Globulin 3.9 g/dL (1.6-3.3); Glucose 116 mg/dL (70-110); Iron 39 ug/dL (50-170); LDL Cholesterol,Calculated 100.8 mg/dL (0.0-131.0); Non-African American GFR(CKD) 71.4 (60.0-200.0); Phosphorus 3.8 mg/dL (2.4-5.1); Potassium 4.7 mmol/L (3.5-5.5); Sodium 136 mmol/L (135-145); Total Bilirubin 0.4 mg/dL (0.3-1.2); Total Iron Binding Capacity 428 ug/dL (228-460); Total Protein 8.2 g/dL (6.2-8.2)
[2021-04-08 18:21] LABS: HCT 44.2 % (37.2-46.3); HGB 13.4 g/dL (12.0-15.0); MCH 22.7 pg (27.0-32.0); MCHC 30.3 g/dL (32.0-37.0); MCV 74.9 fL (80.0-97.0); Platelet Count 271 X 10*3/uL (140-440); RDW 17.4 % (11.5-14.5); WBC 7.26 X 10*3/uL (4.50-10.00)
[2021-04-08 20:00] LABS: Ferritin 18.1 ng/mL (10.0-291.0)
[2021-04-08 20:33] LABS: Hemoglobin A1C 6.5 % (4.0-6.0)
[2021-04-09 11:33] LABS: Partial Thromboplastin Time 26.1 sec (23.5-31.0); Prothrombin Time 10.9 sec (9.9-11.9)
[2021-04-10 12:19] LABS: Folate, Serum >24.0 ng/mL
[2021-04-10 13:52] LABS: Zinc, Serum 68 ug/dL (60-130)
[2021-04-11 06:29] LABS: Vitamin A 46 ug/dL (38-106)
[2021-04-11 07:08] LABS: Vit B1(Thiamine) 46 ug/L (38-122)
[2021-04-11 09:07] LABS: Anabasine Urine <2.0 ng/mL (<2.0)
== END | disposition home or self-care (01) ==
LOC: LABWHC1 08:36
PROVIDERS: ATTEND Surgery Plastic and Reconstructive Surgery
DX: D50.8 Other iron deficiency anemias (principal); E89.1 Postprocedural hypoinsulinemia; K90.89 Other intestinal malabsorption; E55.9 Vitamin D deficiency, unspecified; K74.1 Hepatic sclerosis; N19 Unspecified kidney failure; K50.90 Crohn's disease, unspecified, without complications; F17.210 Nicotine dependence, cigarettes, uncomplicated
CPT/HCPCS: 84255; 84134; 84425; 80061; 80053; 82607; 82728; 82525; 82746; 83540; 83550; 83735; 84100; 84443; 84590; 84630; 85027; 85610; 85730; 82306; 83970; 83036; 93005; 36415; G0480; 80323

== ENCOUNTER → 2021-04-17 | Outpatient (CLI) | payer OTHER ==
[2021-04-17 13:56] VITALS: BMI 82.2
== END ==
LOC: BARWHC3 09:27
PROVIDERS: ATTEND Surgery Plastic and Reconstructive Surgery
DX: E66.01 Morbid (severe) obesity due to excess calories (principal); F17.200 Nicotine dependence, unspecified, uncomplicated; Z71.3 Dietary counseling and surveillance
CPT/HCPCS: 97803

== ENCOUNTER → 2021-06-23 | Outpatient (CLI) | payer OTHER ==
--- NOTE | 2021-06-23 09:02 | XR ---
EXAMINATION TYPE: XR chest 2V DATE OF EXAM: 06/23/2021 COMPARISON: 11/02/2019 HISTORY: 40 year-old female shortness of breath, preoperative bariatric surgery TECHNIQUE: Frontal and lateral views FINDINGS: Heart normal size. Aorta and pulmonary vasculature within normal limits. Large patient body habitus l imits evaluation. Unable to exclude patchy basilar opacities. No pleural effusion. IMPRESSION: Limited by portable technique and large body habitus. Unable to exclude patchy basilar atelectasis or early infiltrate.
== END | disposition home or self-care (01) ==
LOC: RADXRMAIN 08:37
PROVIDERS: ATTEND Internal Medicine
DX: Z01.818 Encounter for other preprocedural examination (principal); R06.02 Shortness of breath
CPT/HCPCS: 71046

== ENCOUNTER → 2021-09-23 | Outpatient (CLI) | payer OTHER ==
[2021-09-23 16:54] LABS: African American GFR (CKD) 102.5 (60.0-200.0); Albumin 4.1 g/dL (3.8-4.9); Albumin/Globulin Ratio 0.91 (1.60-3.17); Anion Gap 10.2 mmol/L (10.00-18.00); BUN/Creat Ratio 14.08 Ratio (12.00-20.00); Blood Urea Nitrogen 11.8 mg/dL (9.0-27.0); Calcium 9.6 mg/dL (8.7-10.3); Carbon Dioxide 25.4 mmol/L (20.0-27.5); Globulin 4.4 g/dL (1.6-3.3); Non-African American GFR(CKD) 88.4 (60.0-200.0); Total Bilirubin 0.3 mg/dL (0.30-1.20); Total Protein 8.5 g/dL (6.2-8.2)
[2021-09-23 17:46] LABS: Basophils # (A) 0.04 X 10*3/uL (0.00-0.10); Basophils % (A) 0.6 %; Eosinophils # (A) 0.18 X 10*3/uL (0.04-0.35); Eosinophils % (A) 2.8 %; HCT 45.9 % (37.2-46.3); HGB 13.5 g/dL (12.0-15.0); Lymphocytes % (A) 42.5 %; MCH 21.8 pg (27.0-32.0); MCHC 29.4 g/dL (32.0-37.0); MCV 74.3 fL (80.0-97.0); Monocytes # (A) 0.53 X 10*3/uL (0.20-1.00); Monocytes % (A) 8.3 %; Neutrophils # (A) 2.88 X 10*3/uL (1.80-7.70); Neutrophils % (A) 45.5 %; Platelet Count 262 X 10*3/uL (140-440); RBC 6.18 X 10*6/uL (4.10-5.20); RDW 18.6 % (11.5-14.5); WBC 6.35 X 10*3/uL (4.50-10.00)
[2021-09-25 15:30] LABS: Anabasine Urine <2.0 ng/mL (<2.0)
== END | disposition home or self-care (01) ==
LOC: LABPAT 09:58
PROVIDERS: ATTEND Surgery Plastic and Reconstructive Surgery
DX: Z01.812 Encounter for preprocedural laboratory examination (principal); Z71.51 Drug abuse counseling and surveillance of drug abuser
CPT/HCPCS: 80053; 85025; 36415; G0480; 80323

== ENCOUNTER → 2021-09-28 | Outpatient (CLI) | payer OTHER | END | disposition home or self-care (01) | LOC: LABWHC1 10:42 | PROVIDERS: ATTEND Surgery Plastic and Reconstructive Surgery | DX: Z20.822 Contact with and (suspected) exposure to COVID-19 (principal) ==

== ENCOUNTER 2021-10-02 06:50 | Inpatient (IN) | payer OTHER ==
[~2021-10-02 06:50] MED LIST changes: +ACETAMINOPHEN TAB 500 MG TAB PO PRN; +DEXAMETHASONE SOD PHOSPHATE 4 MG/ML 1 ML VIAL IV ONE; +GABAPENTIN 300 MG CAP PO PRN; -LACTATED RINGERS 1,000 ML IV SCH; +ONDANSETRON 4 MG/2 ML VIAL IVP ONE; +SCOPOLAMINE 1.5MG/72HR PATCH TRANSDERM PRN
[2021-10-02] MEDS ORDERED: CHLORHEXIDINE GLUCONATE 15 ML CUP MUCOUS MEM PRN (07:00)
[2021-10-02] MEDS ORDERED: ceFAZolin 3 GM in SODIUM CHLORIDE 0.9% 100 ML IVPB PRN (07:00)
[2021-10-02] MEDS ORDERED: PANTOPRAZOLE 40 MG/10 ML VIAL IVP PRN (07:00)
[2021-10-02] MEDS ORDERED: ENOXAPARIN 40 MG/0.4 ML SYRINGE SQ PRN (07:00)
--- NOTE | 2021-10-02 07:30 | P.GSHP ---
History of Present Illness H&P Date: 10/01/21 CHIEF COMPLAINT: Morbid obesity HISTORY OF PRESENT ILLNESS: Amber Rodríguez is a 41-year-old female who comes in with long-standing morbid obesity. She comes in looking for the sleeve gastrectomy. In the past 3 years, she has gained significant amount of weight from 391 pounds to over 480 pounds. She had tried Weight watchers, medical supervised weight loss. She has family history of morbid obesity with her mother and sister having bariatric procedures. She has co-morbidities including obstructive sleep apnea, hypertension, and diabetes. She has lower back pain, bilateral hip pain, knees, ankles, and feet from osteoarthritis. At height of 5 feet 4.25 inches, her ideal body weight is 144 pounds. She comes in highest weight of 480 pounds from 471 pounds, 3 months ago. She has gained 11 pounds in 3 months. Body mass index is up from 74.3, now 81.4. She is 338 pounds overweight. PAST MEDICAL HISTORY: 1. Morbid obesity due to excess calories 2. Body mass index of 81.4 3. Osteoarthritis of the knees. 4. Osteoarthritis of the hips. 5. Osteoarthritis of the lower back. 6. Obstructive sleep apnea. 7. Hypertensive heart disease. 8. Gastroesophageal reflux disease 9. Diabetes mellitus type 2 10. Osteoarthritis of the bilateral ankles. PAST SURGICAL HISTORY: 1. section 2. Uterine ablation 3. Tonsillectomy 4. Orthopedic procedure 5. Eustachian tubes 6. Bilateral carpal tunnel release HOME MEDICATIONS: Home Medications Medication Instructions Recorded Confirmed Albuterol Sulfate [Proair Hfa] 2 puff INHALATION RT-Q6H PRN 07/14/20 10/12/20 Ibuprofen [Motrin] 800 mg PO TID PRN 07/14/20 10/12/20 Phentermine HCl 37.5 mg PO DAILY 07/14/20 10/12/20 metFORMIN HCL [Glucophage] 500 mg PO DAILY 07/14/20 10/12/20 traMADol HCL [Ultram] 50 mg PO TID PRN 07/14/20 10/12/20 Hydrochlorothiazide 12.5 mg PO DIRECTED 10/12/20 10/12/20 [hydroCHLOROthiazide] ALLERGIES: Denies. SOCIAL HISTORY: History of tobacco abuse. FAMILY HISTORY: No family history of ulcerative colitis disease or Crohn's disease. Family history of morbid obesity. No lupus in the family. No reports of stomach or esophageal cancer. Family history of diabetes type 2. REVIEW OF ORGAN SYSTEMS: CONSTITUTIONAL: At height of 5 feet 4.25 inches, her ideal body weight is 144 pounds. She comes in highest weight of 471 pounds from 435 pounds, 8 months ago. She has gained 80 pounds from 391 pounds in 3 years. Body mass index is up from 67.3 to 80.1. She is 327 pounds overweight. HEENT: Denies any active troubles with vision or hearing. No troubles with swallowing. ENDOCRINE: Has diabetes. No hypothyroidism. CARDIOVASCULAR: No reports of palpitations or heart attacks or chest pain. Has hypertension. RESPIRATORY: Has daytime somnolence. Has asthma. Has obstructive sleep apnea. GI: Denies any bright red blood per rectum. No diarrhea or constipation. Has gastroesophageal reflux disease. Has fatty food intolerance. MUSCULOSKELETAL: Has lower back pain and joint pain. Has osteoarthritis of the knees. Bilateral lower extremity swelling of the feet. NEURO: No headaches. No seizure disorders. PSYCH: Has depression. Has anxiety. No suicidal ideation. RHEUMATOLOGIC: No lupus. No rheumatoid arthritis. HEMATOLOGIC: Denies any abnormal bleeding or bruising. No personal history of DVTs. SKIN: No rash. No skin cancer. PHYSICAL EXAM: VITAL SIGNS: Height 5 foot 4.25 inches, weight 481 pounds. BMI 81.4 GENERAL: Well-developed in no acute distress. HEENT: No scleral icterus. Extraocular movements grossly intact. Hears conversational speech. No nasal drainage. NECK: Supple without lymphadenopathy. CHEST: Nonlabored respirations with equal bilateral excursions. CARDIOVASCULAR: Regular rate and rhythm. Distal 2+ pulses. ABDOMEN: Obese, soft, nontender, nondistended. MUSCULOSKELETAL: No clubbing, cyanosis. NEURO: No focal or lateralizing signs. Cranial nerves 2 through 12 grossly within normal limits. PSYCH: Appropriate affect. Alert and oriented to person, place and time. SKIN: Good skin turgor. Well perfused. ASSESSMENT: 1. Morbid obesity due to excess calories 2. Body mass index of 81.4 3. Osteoarthritis of the knees. 4. Osteoarthritis of the hips. 5. Osteoarthritis of the lower back. 6. Obstructive sleep apnea. 7. Hypertensive heart disease. 8. Gastroesophageal reflux disease 9. Diabetes type 2 10. Osteoarthritis of the bilateral ankles. 11. Bilateral lower extremity edema. 12. Right upper quadrant abdominal pain 13. Supraventricular tachycardia 14. Gastric ulcers 15. Vitamin D deficiency 16. Iron deficiency 17. Tobacco abuse disorder PLAN: 1. Bariatric options between a sleeve, band and a Fiordaliza-en-Y gastric bypass were reviewed in detail. The patient elected for a sleeve gastrectomy. Robotic assisted approach described. 2. The [place] [facility] Data was also reviewed with benefits and risks as described. 3. An 8 page second-generation bariatric consent form was reviewed in detail including potential of bleeding, infection, leaks, adequate weight loss, nutritional deficiencies which the patient demonstrated understanding of the risks. 4. A 2 week high-protein low caloric 800 kcal diet described to address hepatomegaly. Strict weight loss of 20 pounds as scribe for compliance. 5. Preoperative labs including complete metabolic panel and CBC with type and screen recommended. 6. DVT prophylaxis per [place] [facility] collaborative. 7. Antibiotic prophylaxis. 8. Inpatient hospitalization anticipated for more than 2 nights. 9. All questions and concerns were addressed with the patient. 10. She is at elevated risk for perioperative complications with history of tobacco abuse disorder including super morbid obesity BMI over 80. Past Medical History Past Medical History: Diabetes Mellitus, Hypertension Additional Past Medical History / Comment(s): delphine leg edema,restless leg syndrome History of Any Multi-Drug Resistant Organisms: None Reported Past Surgical History: No Surgical Hx Reported Additional Past Surgical History / Comment(s): DENTAL WORK UNDER ANESTHESIA,EGD Past Anesthesia/Blood Transfusion Reactions: No Reported Reaction Additional Past Anesthesia/Blood Transfusion Reaction / Comment(s): No problems being put under for dental extractions.No hx blood transfusion Smoking Status: Former smoker - Past Family History Mother Family Medical History: No Reported History Additional Family Medical History / Comment(s): mother had bariatric surgery Father Family Medical History: No Reported History Medications and Allergies Home Medications Medication Instructions Recorded Confirmed Type metFORMIN HCL [Glucophage] 500 mg PO DAILY 07/14/20 09/25/21 History Allergies Allergy/AdvReac Type Severity Reaction Status Date / Time No Known Allergies Allergy Verified 10/02/21 07:14
[2021-10-02] MEDS ORDERED: LIDOCAINE 1% (10MG/ML) FOR IV START INTRADERMA ONE (07:50)
[2021-10-02] MEDS: LACTATED RINGERS 1,000 ML IV SCH (07:50)
[2021-10-02 07:59] LABS: Glucose,Whole Blood 82 mg/dL (75-99)
[2021-10-02] MEDS ORDERED: PROPOFOL 10 MG/ML 20 ML VIAL IV ONE (08:00)
[2021-10-02] MEDS ORDERED: NEOSTIGMINE 1 MG/ML 10 ML VIAL ONE (08:00)
[2021-10-02] MEDS ORDERED: GLYCOPYRROLATE 0.2 MG/ML 2 ML VIAL ONE (08:00)
[2021-10-02] MEDS ORDERED: MIDAZOLAM 2 MG/2 ML VIAL ONE (08:00)
[2021-10-02] MEDS ORDERED: fentaNYL (PF) 50 MCG/ML 2 ML AMP ONE (08:00)
[2021-10-02] MEDS ORDERED: LIDOCAINE 1% INJ 10MG/ML (20 ML MDV) ONE (08:00)
[2021-10-02] MEDS ORDERED: SUCCINYLCHOLINE CHLORIDE VIAL 200 MG/10 ML VIAL IV ONE (08:00)
[2021-10-02] MEDS ORDERED: ROCURONIUM 10 MG/ML (5 ML VIAL) IV ONE (08:00)
[2021-10-02] MEDS ORDERED: HYDROmorphone (PF) 1 MG/ML ONE (08:00)
[2021-10-02] MEDS ORDERED: PHENYLEPHRINE-0.9% NACL SYG 1,000 MCG/10 ML SYRINGE ONE (08:00)
[2021-10-02] MEDS ORDERED: BUPIVACAIN-EPI 0.25%-1:200,000 30 ML VIAL SQ ONE ×2 (08:41→08:42)
[2021-10-02] MEDS ORDERED: LACTATED RINGERS 1,000 ML IV ONE (09:43)
[2021-10-02] MEDS ORDERED: diphenhydrAMINE 50 MG/ML 1 ML VIAL IVP PRN (10:35)
[2021-10-02] MEDS ORDERED: NALOXONE 0.4 MG/ML 1 ML VIAL IV PRN (10:35)
--- NOTE | 2021-10-02 10:46 | P.OP ---
Date of Procedure: 10/02/21 Description of Procedure: SURGEON: JACK JAMES MD PREOPERATIVE DIAGNOSES: 1. Morbid obesity due to excess calories 2. Body mass index of 81.4 3. Osteoarthritis of the knees. 4. Osteoarthritis of the hips. 5. Osteoarthritis of the lower back. 6. Obstructive sleep apnea. 7. Hypertensive heart disease. 8. Gastroesophageal reflux disease 9. Diabetes type 2 10. Osteoarthritis of the bilateral ankles. 11. Bilateral lower extremity edema. 12. Right upper quadrant abdominal pain 13. Supraventricular tachycardia 14. Gastric ulcers 15. Vitamin D deficiency 16. Iron deficiency 17. Tobacco abuse disorder POSTOPERATIVE DIAGNOSES: 1. Morbid obesity due to excess calories 2. Body mass index of 81.4 3. Osteoarthritis of the knees. 4. Osteoarthritis of the hips. 5. Osteoarthritis of the lower back. 6. Obstructive sleep apnea. 7. Hypertensive heart disease. 8. Gastroesophageal reflux disease 9. Diabetes type 2 10. Osteoarthritis of the bilateral ankles. 11. Bilateral lower extremity edema. 12. Right upper quadrant abdominal pain 13. Supraventricular tachycardia 14. Gastric ulcers 15. Vitamin D deficiency 16. Iron deficiency 17. Tobacco abuse disorder 18. Hepatomegaly OPERATION: 1. Robotic assisted daVinci Xi laparoscopic sleeve gastrectomy, multiport 2. Intraoperative esophagogastroduodenoscopy. ANESTHESIA: Gen. local anesthetic ESTIMATED BLOOD LOSS: 5 mL SPECIMENS REMOVED: Sleeve gastrectomy COMPLICATIONS: None. FINDINGS: 1. Negative intraoperative esophagogastrojejunoscopy leak test. 2. No large hiatus hernia. 3. Total of 7 staplers used including 2 - 60 mm black robot farzana and 3 - 60 mm green and 360 mm blue robot loads used to create the gastric sleeve. 4. Sleeve gastrectomy, 29 x 4 cm INDICATIONS: Amber Rodríguez is a 41-year-old female who comes in with long- standing morbid obesity. She comes in looking for the sleeve gastrectomy. In the past 3 years, she has gained significant amount of weight from 391 pounds to over 480 pounds. She had tried Weight watchers, medical supervised weight loss. She has family history of morbid obesity with her mother and sister having bariatric procedures. She has co-morbidities including obstructive sleep apnea, hypertension, and diabetes. She has lower back pain, bilateral hip pain, knees, ankles, and feet from osteoarthritis. At height of 5 feet 4.25 inches, her ideal body weight is 144 pounds. Highest weight of 480 pounds, body mass index 81.4. She comes in today with a 23 pound weight loss. All surgical options for morbid obesity had been described using the [place] [facility]ariat[facility] collaborative comorbidity resolution including complication risk score. A second-generation bariatric consent form was described in detail including the possibility of protein malnutrition, leaks, gastric stricture, venous thrombosis, gastroesophageal reflux disease, need for further surgery for which she demonstrated understanding. Benefits and risks of the procedure were described at length. Informed consent was obtained. DESCRIPTION: The patient was brought into the operating room theater. Preoperatively she had received Lovenox subcutaneously for DVT prophylaxis. Additionally she had Peridex oral solution as an oral decontaminant. After general induction, the abdomen was prepped and draped in standard sterile fashion. An Ioban draping was placed along the abdomen. A robotic da Zara Xi system was prepped and primed. At 15 cm from the xiphoid, proposed port sites were marked with indelible marker along the anterior axillary line bilaterally, mid axillary line bilaterally with each ports were marked 10 to 15 cm from each other. The robotic stapler port was marked for the right midclavicular line. A 5 mm 0 degrees laparoscopic trocar entry was performed along the left upper quadrant. The abdomen was insufflated to 15 mmHg pressure was tolerated well. Diagnostic laparoscopy demonstrated no injury to bowel, viscera, or mesentery. No evidence of large hiatus hernia was identified. The liver had mild hepatomegaly. A 8 mm port was placed along the left upper abdominal wall after exchanging the 5 mm port. A separate 8 mm port was placed along the left lateral abdominal wall. Please note that the ports were placed at least 20 cm away from the target anatomy. Care was taken to check each robotic arms were safely away from collision with the bed or the patient. At the epigastrium, a medium sized Ignacio liver retractor was placed under direct visualization with the Iron Customer Success Manager placed under the right shoulder of the patient. Next, 12-mm robot stapler port was placed along the right upper quadrant. The camera 8-mm port was maintained along the epigastrium. The patient was repositioned in reverse Trendelenburg position at 21-degrees after lowering the bed. The robot was docked along the left side of the patient. Using a grasper for arm 4, a vessel sealer for arm 3, including grasper for arm 1, the robotic system was docked and primed as described. Instruments were interchanged by the child life assistant for stapler loads. The camera was placed at 30- degrees down. I had sat at the console. The pylorus was identified and 6 cm proximally along the greater curvature of the stomach, the short gastrics were mobilized upwards to the angle of His using a vessel sealer. Hemostasis was excellent during this portion of the procedure. Next, the upper pole of the stomach was adherent to the left ivonne, which was gently dissected free using atraumatic grasper. I went to the head of the bed and placed 40-Trinidadian blunt bougie into the stomach. Despite multiple adjustments, the bougie was not able to pass via the vocal cords into the esophagus. An Olympus gastroscope was instead used as a bougie. Robotic stapler black load 60 mm 2 followed by green 60 mm x 3 loads and green 60 mm robotic stapler loads were used to create the sleeve. Initial firing was across the antrum of the stomach towards the angle of His. The staple line was linear without corkscrewing. The space from the angularis incisura of the sleeve was approximately 4 cm. I then went to the head of the bed to perform the intraoperative esophagogastroduodenoscopy leak test. The upper pole of the stomach was bathed using normal saline solution. The scope was withdrawn with careful inspection along the staple line for which no leaks were found along the entire length. Additionally,the sleeve was completely hemostatic without any encroachment along the angularis incisura. Its topology was a soft "J". No stricture was encountered upon placement of the scope. The GI tract was desufflated. The patient tolerated this portion of the procedure well. The scope was completely withdrawn. The robot was undocked. I then rescrubbed into case, whereby the irrigation fluid was aspirated from the abdominal cavity. Tisseel fibrin sealant was placed along the entire staple length. Once dried the Ignacio liver retractor was removed. Attention was now brought to removal of the specimen. The distal end of the sleeve gastrectomy specimen was brought out through the 12 mm port at the left upper quadrant. The specimen was gently removed en total. No contamination had occurred during this process. All instruments and pneumoperitoneum including irrigation fluid was removed from the abdominal cavity. The 12 mm port site was closed using 0-Vicryl and Jose Hull and irrigated with diluted hydrogen peroxide. The final incisions were closed using subcuticular interrupted suture of 4-0 Monocryl. Exofin was applied to the skin once the skin had been cleansed. OptiFoam dressing was placed along the stomach extraction site. The sleeve specimen was measured and checked also for leaks which none were found. At the end of the procedure, needle, sponge, and instrument count was verified correct by the surgical specialist. The patient was taken to the postanesthesia care unit in stable condition. She had tolerated the procedure well. Intraoperative films and findings were reviewed with the patient's family.
[2021-10-02] MEDS: HYDROmorphone 0.5 MG/0.5 ML SYRINGE IVP PRN ×3 (10:47→11:10)
[2021-10-02] MEDS: ALBUTEROL NEBULIZED 2.5 MG/3 ML INHALATION SCH ×3 (12:07→20:34)
[2021-10-02] MEDS: KETOROLAC 30 MG/ML 1 ML VIAL IVP SCH ×3 (12:44→23:11)
[2021-10-02] MEDS: ACETAMINOPHEN IV (For NPO) 1,000 MG in EMPTY BAG 1 BAG IVPB SCH ×3 (12:45→23:10)
[2021-10-02] MEDS: HYOSCYAMINE ORAL DROPS 1.875 MG/15 ML BOTTLE PO SCH ×3 (14:17→23:13)
[2021-10-02] MEDS: INSULIN ASPART (NovoLOG) 100 UNIT/ML VIAL SQ SCH ×3 (14:17→23:29)
[2021-10-02] MEDS: DEXAMETHASONE SOD PHOSPHATE 4 MG/ML 1 ML VIAL IVP SCH ×3 (14:17→23:12)
[2021-10-02] MEDS: SIMETHICONE 40 MG/0.6 ML DROPS 2,000 MG/30 ML BOTTLE PO SCH ×3 (14:18→23:13)
[2021-10-02] MEDS: ONDANSETRON 4 MG/2 ML VIAL IVP SCH ×3 (14:18→23:12)
[2021-10-02] MEDS: 0.9% NACL WITH KCL 20 MEQ/L 1,000 ML IV SCH ×2 (14:45→16:15)
[2021-10-02] MEDS: ceFAZolin 3 GM in SODIUM CHLORIDE 0.9% 100 ML IVPB SCH (14:59)
[2021-10-02] MEDS: HYDROmorphone 1 MG/ML 1 ML SYRINGE IVP PRN ×2 (16:19→21:47)
[2021-10-02 17:03] LABS: Glucose,Whole Blood 108 mg/dL (75-99)
[2021-10-02 21:35] LABS: Glucose,Whole Blood 83 mg/dL (75-99)
[2021-10-02] MEDS: PANTOPRAZOLE 40 MG/10 ML VIAL IV SCH (21:54)
[2021-10-03] MEDS: 0.9% NACL WITH KCL 20 MEQ/L 1,000 ML IV SCH ×2 (00:49→07:30)
[2021-10-03] MEDS: ceFAZolin 3 GM in SODIUM CHLORIDE 0.9% 100 ML IVPB SCH (00:49)
[2021-10-03] MEDS: HYDROmorphone 1 MG/ML 1 ML SYRINGE IVP PRN ×2 (03:11→10:30)
[2021-10-03] MEDS: DEXAMETHASONE SOD PHOSPHATE 4 MG/ML 1 ML VIAL IVP SCH ×2 (06:14→11:41)
[2021-10-03] MEDS: KETOROLAC 30 MG/ML 1 ML VIAL IVP SCH ×2 (06:14→11:41)
[2021-10-03] MEDS: ONDANSETRON 4 MG/2 ML VIAL IVP SCH ×2 (06:14→11:42)
[2021-10-03] MEDS: ACETAMINOPHEN IV (For NPO) 1,000 MG in EMPTY BAG 1 BAG IVPB SCH (06:15)
[2021-10-03] MEDS: SIMETHICONE 40 MG/0.6 ML DROPS 2,000 MG/30 ML BOTTLE PO SCH ×2 (06:16→11:43)
[2021-10-03] MEDS: HYOSCYAMINE ORAL DROPS 1.875 MG/15 ML BOTTLE PO SCH ×2 (06:16→11:43)
[2021-10-03 07:19] LABS: Glucose,Whole Blood 87 mg/dL (75-99)
[2021-10-03] MEDS: INSULIN ASPART (NovoLOG) 100 UNIT/ML VIAL SQ SCH ×2 (07:27→11:42)
[2021-10-03] MEDS: LACTATED RINGERS 1,000 ML IV SCH (07:27)
[2021-10-03] MEDS ORDERED: 0.9% NACL WITH KCL 20 MEQ/L 1,000 ML IV SCH (08:00)
[2021-10-03] MEDS: ALBUTEROL NEBULIZED 2.5 MG/3 ML INHALATION SCH ×3 (08:59→15:57)
[2021-10-03] MEDS ORDERED: ENOXAPARIN 40 MG/0.4 ML SYRINGE SQ SCH (09:00)
--- NOTE | 2021-10-03 09:57 | FL ---
EXAMINATION TYPE: FL UGI DATE OF EXAM: 10/03/2021 LIMITED UGI: CLINICAL HISTORY: Morbid Obesity, gastric sleeve surgery yesterday. TECHNIQUE: Limited esophagram is performed utilizing 2 oz of Isovue-370. A total of 98 seconds of fl uoroscopic time was utilized during procedure and 65 images obtained. COMPARISON: None. FINDINGS: Exam slightly suboptimal due to patient's large body habitus. The patient swallowed contra st without difficulty or delay. Esophageal peristalsis and motility are within normal limits. There is good flow of contrast along the diaphragmatic hiatus into proximal stomach and mild to minimal de lay in flow into gastric sleeve through the proximal anastomosis. There is mild to moderate delay in flow from distal sleeve and anastomosis into pylorus and duodenal sweep. Patient remains asymptomatic without increased nausea or vomiting. There is no obvious evidence of contrast extravasation to sugg est leak. IMPRESSION: Slightly suboptimal study due to large body habitus. No obvious fluoroscopic evidence of leak or significant obstruction status post recent gastric sleeve surgery yesterday.
[2021-10-03 10:03] LABS: Magnesium 2.3 mg/dL (1.5-2.4); Phosphorus 4.1 mg/dL (2.4-5.1)
[2021-10-03 10:15] LABS: Basophils # (A) 0.02 X 10*3/uL (0.00-0.10); Basophils % (A) 0.2 %; Eosinophils # (A) 0 X 10*3/uL (0.04-0.35); Eosinophils % (A) 0 %; HCT 49.3 % (37.2-46.3); HGB 14.3 g/dL (12.0-15.0); Lymphocytes # (A) 1.12 X 10*3/uL (0.90-5.00); Lymphocytes % (A) 11.5 %; MCH 22.4 pg (27.0-32.0); MCV 77.4 fL (80.0-97.0); Monocytes # (A) 0.27 X 10*3/uL (0.20-1.00); Monocytes % (A) 2.8 %; Neutrophils # (A) 8.31 X 10*3/uL (1.80-7.70); Neutrophils % (A) 85.1 %; Platelet Count 260 X 10*3/uL (140-440); RBC 6.37 X 10*6/uL (4.10-5.20); RDW 19.4 % (11.5-14.5); WBC 9.76 X 10*3/uL (4.50-10.00)
[2021-10-03 10:16] LABS: Microcytosis (M) 2+
[2021-10-03 10:21] LABS: African American GFR (CKD) 93.4 (60.0-200.0); Anion Gap 15.3 mmol/L (10.00-18.00); Blood Urea Nitrogen 9.8 mg/dL (9.0-27.0); Calcium 9.6 mg/dL (8.7-10.3); Carbon Dioxide 21.7 mmol/L (20.0-27.5); Non-African American GFR(CKD) 80.5 (60.0-200.0)
[2021-10-03] MEDS ORDERED: SODIUM CHLORIDE 0.9% 2,000 ML IV ONE (10:28)
[2021-10-03 11:24] VITALS: BP 120/74; PULSE 107; RESP 24; TEMP 98
[2021-10-03] MEDS: PANTOPRAZOLE 40 MG/10 ML VIAL IV SCH (11:41)
[2021-10-03 11:42] LABS: Glucose,Whole Blood 97 mg/dL (75-99)
[2021-10-03] MEDS ORDERED: ACETAMINOPHEN ORAL SUSP (PEDS) 3,840 MG/120 ML BOTTLE PO PRN (11:55)
[2021-10-03 12:48] VITALS: BMI 78.5
[2021-10-03 13:42] LABS: Potassium 6.2 mmol/L (3.5-5.5)
--- NOTE | 2021-10-03 16:12 | P.DS ---
Providers Date of admission: 10/02/21 06:50 Expected date of discharge: 10/03/21 Attending physician: Mallory Silva Primary care physician: Stated None Hospital Course: Discharge diagnosis 1. Morbid obesity due to excess calories 2. Body mass index of 81.4 3. Osteoarthritis of the knees. 4. Osteoarthritis of the hips. 5. Osteoarthritis of the lower back. 6. Obstructive sleep apnea. 7. Hypertensive heart disease. 8. Gastroesophageal reflux disease 9. Diabetes type 2 10. Osteoarthritis of the bilateral ankles. 11. Bilateral lower extremity edema. 12. Right upper quadrant abdominal pain 13. Supraventricular tachycardia 14. Gastric ulcers 15. Vitamin D deficiency 16. Iron deficiency 17. Tobacco abuse disorder 18. Hepatomegaly 19. Hyperkalemia improving Hospital course Amber Rodríguez is a 41-year-old female who comes in with long-standing morbid obesity. In the past 3 years, she has gained significant amount of weight from 391 pounds to over 480 pounds. She had tried Weight watchers, medical supervised weight loss. She has family history of morbid obesity with her mother and sister having bariatric procedures. She has co-morbidities including obstructive sleep apnea, hypertension, and diabetes. She has lower back pain, bilateral hip pain, knees, ankles, and feet from osteoarthritis. Patient is status post Robotic assisted daVinci Xi laparoscopic sleeve gastrectomy. Patient tolerated surgery well. Her pain is controlled. Her upper GI shows no evidence of leak or obstruction. She is tolerating her bariatric clear liquid diet. She has been up and ambulating. She is afebrile. She is stable for discharge. Physician Medical Photographer note has been reviewed by physician. Signing provider agrees with the documented findings, assessment, and plan of care. Patient Condition at Discharge: Stable Plan - Discharge Summary Discharge Rx Participant: Yes New Discharge Prescriptions: New bisacodyL [Dulcolax] 5 mg PO DAILY PRN #10 tab PRN Reason: Constipation Simethicone 40 mg/0.6 ml Drops [Mylicon Drops] 40 mg PO PCHS PRN #30 ml PRN Reason: Gas Omeprazole [PriLOSEC] 40 mg PO DAILY #30 cap Ondansetron Odt [Zofran Odt] 4 mg PO Q8HR PRN #9 tab PRN Reason: Nausea Acetaminophen [Tylenol Extra Strength] 1,000 mg PO Q6H PRN #12 tablet PRN Reason: Pain Discontinued metFORMIN HCL [Glucophage] 500 mg PO DAILY Discharge Medication List Acetaminophen [Tylenol Extra Strength] 1,000 mg PO Q6H PRN #12 tablet 10/03/21 [Rx] Omeprazole [PriLOSEC] 40 mg PO DAILY #30 cap 10/03/21 [Rx] Ondansetron Odt [Zofran Odt] 4 mg PO Q8HR PRN #9 tab 10/03/21 [Rx] Simethicone 40 mg/0.6 ml Drops [Mylicon Drops] 40 mg PO PCHS PRN #30 ml 10/03/21 [Rx] bisacodyL [Dulcolax] 5 mg PO DAILY PRN #10 tab 10/03/21 [Rx] [facility] [place] [facility] [place] [facility] 9:00 am Activity/Diet/Wound Care/Special Instructions: Wear abdominal binder at all times for comfort. No lifting over 4 pounds in 4 weeks until Oct 30. May shower. No bath tub soaks for two weeks until Oct 16 Use ice along incisions for the today to prevent swelling. No straws or carbonated beverages Open cuts and/or crush all pills to the size smaller than a TicTac Discharge Disposition: HOME SELF-CARE
[2021-10-03 17:07] LABS: Glucose,Whole Blood 101 mg/dL (75-99)
[2021-10-04] MEDS ORDERED: bisacodyL 5 MG TABLET.DR PO PRN (08:00)
== END 2021-10-03 18:02 | disposition home or self-care (01) | DRG 620 ==
LOC: 2ORMAIN 06:50 → 4SSUR 11:03
PROVIDERS: ADMIT Surgery Plastic and Reconstructive Surgery; ATTEND Surgery Plastic and Reconstructive Surgery
PROC: 0DJ08ZZ Inspection of Upper Intestinal Tract, Via Natural or Artificial Opening Endoscopic (ICD-10-PCS; 2021-10-02)
PROC: 8E0W4CZ Robotic Assisted Procedure of Trunk Region, Percutaneous Endoscopic Approach (ICD-10-PCS; 2021-10-02)
PROC: 0DB64Z3 Excision of Stomach, Percutaneous Endoscopic Approach, Vertical (ICD-10-PCS; principal; 2021-10-02 08:30)
DX: E66.01 Morbid (severe) obesity due to excess calories (principal); I47.1 Supraventricular tachycardia; E11.9 Type 2 diabetes mellitus without complications; E55.9 Vitamin D deficiency, unspecified; E61.1 Iron deficiency; E87.5 Hyperkalemia; G25.81 Restless legs syndrome; G47.33 Obstructive sleep apnea (adult) (pediatric); I11.9 Hypertensive heart disease without heart failure; K21.9 Gastro-esophageal reflux disease without esophagitis; K25.9 Gastric ulcer, unspecified as acute or chronic, without hemorrhage or perforation; M17.0 Bilateral primary osteoarthritis of knee; M16.0 Bilateral primary osteoarthritis of hip; M19.071 Primary osteoarthritis, right ankle and foot; M19.072 Primary osteoarthritis, left ankle and foot; R16.0 Hepatomegaly, not elsewhere classified; Z68.45 Body mass index [BMI] 70 or greater, adult; Z72.0 Tobacco use; Z79.84 Long term (current) use of oral hypoglycemic drugs; Z83.3 Family history of diabetes mellitus
CPT/HCPCS: 74240; 80051; 81025; 82310; 82565; 83036; 83735; 84100; 84132; 84520; 85025; 86850; 86900; 86901; 88307; 94640; 94760; 94762

== ENCOUNTER → 2021-10-06 | Outpatient (CLI) | payer OTHER ==
--- NOTE | 2021-10-06 09:28 | P.BASOAP ---
Subjective Progress Note Date: 10/06/21 DATE OF SERVICE: 10/06/2021 CHIEF COMPLAINT: Status post sleeve gastrectomy HISTORY OF PRESENT ILLNESS: Amber Rodríguez is a 41-year-old female status post sleeve gastrectomy, 10/02/21. She is doing well. Her blood pressure has improved. Her pain is well controlled. At height of 5 feet 4.25 inches, her ideal body weight is 144 pounds. She comes in 462 pounds from 481 pounds, 2 months ago. She has lost 19 pounds in 2 months. Body mass index is down from 82.1 to 78.9. She lost 19 pounds lifetime. Lifetime percent excess weight loss is 6%. She is 318 pounds overweight. PHYSICAL EXAM: VITAL SIGNS: Height 5 foot 4.25 inches, weight 462 pounds. BMI 78.9 Vital Signs Temp 97.5 F L 10/06/21 10:25 Pulse 55 L 10/06/21 10:25 Resp BP 132/85 10/06/21 10:25 Pulse Ox GENERAL: Well-developed in no acute distress. HEENT: No scleral icterus. Extraocular movements grossly intact. Hears conversational speech. No nasal drainage. NECK: Supple without lymphadenopathy. CHEST: Nonlabored respirations with equal bilateral excursions. CARDIOVASCULAR: Regular rate and rhythm. Distal 2+ pulses. ABDOMEN: Obese, soft, nontender, nondistended. Incision intact, without cellulitis. MUSCULOSKELETAL: No clubbing, cyanosis. NEURO: No focal or lateralizing signs. Cranial nerves 2 through 12 grossly within normal limits. PSYCH: Appropriate affect. Alert and oriented to person, place and time. SKIN: Good skin turgor. Well perfused. Final Pathologic Diagnosis PORTION OF STOMACH, SLEEVE GASTRECTOMY: Focal mild chronic gastritis. Morbid obesity clinically. No Helicobacter organisms seen on H+E staining. ASSESSMENT: 1. Morbid obesity due to excess calories 2. Body mass index of 82.1 to 78.9. 3. Osteoarthritis of the knees. 4. Osteoarthritis of the hips. 5. Osteoarthritis of the lower back. 6. Obstructive sleep apnea. 7. Hypertensive heart disease. 8. Gastroesophageal reflux disease 9. Diabetes type 2 10. Osteoarthritis of the bilateral ankles. 11. Bilateral lower extremity edema. 12. Right upper quadrant abdominal pain 13. Supraventricular tachycardia 14. Gastric ulcers 15. Vitamin D deficiency 16. Iron deficiency 17. Tobacco abuse disorder 18. Copper excess 19. Hypertriglyceridemia 20. Second hand tobacco exposure 21. Status post sleeve gastrectomy PLAN: 1. She is doing well. 2. Recommend stop Metformin. 3. Her blood pressure looks good. 4. Recommend avoiding tomato soup. 5. Follow next week. Assessment/Plan Plan: Date: Initial Weight: 179.26 kg Initial BMI: Current Weight: Current BMI: Type of Surgery: Total Volume in Band: Previous Volume: Volume Removed: Volume Added: Band Size:
[2021-10-06 10:27] VITALS: BP 132/85; PULSE 55; TEMP 97.5; BMI 78.8
== END ==
LOC: BARWHC3 08:50
PROVIDERS: ATTEND Surgery Plastic and Reconstructive Surgery
DX: E66.01 Morbid (severe) obesity due to excess calories (principal); Z68.45 Body mass index [BMI] 70 or greater, adult; M17.0 Bilateral primary osteoarthritis of knee; M16.0 Bilateral primary osteoarthritis of hip; M47.9 Spondylosis, unspecified; G47.33 Obstructive sleep apnea (adult) (pediatric); I11.9 Hypertensive heart disease without heart failure; K21.9 Gastro-esophageal reflux disease without esophagitis; E11.9 Type 2 diabetes mellitus without complications; R60.0 Localized edema; R10.11 Right upper quadrant pain; I47.1 Supraventricular tachycardia; K25.9 Gastric ulcer, unspecified as acute or chronic, without hemorrhage or perforation; E55.9 Vitamin D deficiency, unspecified; E61.1 Iron deficiency; Z72.0 Tobacco use; E78.1 Pure hyperglyceridemia; Z98.84 Bariatric surgery status
CPT/HCPCS: 99213

== ENCOUNTER → 2021-10-11 | Outpatient (CLI) | payer OTHER ==
--- NOTE | 2021-10-11 15:48 | P.BASOAP ---
Subjective Progress Note Date: 10/11/21 DATE OF SERVICE: 10/11/2021 CHIEF COMPLAINT: Status post sleeve gastrectomy HISTORY OF PRESENT ILLNESS: Amber Rodríguez is a 41-year-old female status post sleeve gastrectomy, 10/02/21. She is 2 weeks out. She lost 20 pounds in 5 days. She cannot tolerate premier protein. She denies gastroesophageal reflux disease. At height of 5 feet 4.25 inches, her ideal body weight is 144 pounds. Highest weight 481 pounds, BMI 81.2. She comes in 446 pounds from 462 pounds, 1 week ago. She has lost 16 pounds in 1 week. Body mass index is down from 82.1 to 76.7. She lost 35 pounds lifetime. Lifetime percent excess weight loss is 10%. She is 302 pounds overweight. PHYSICAL EXAM: VITAL SIGNS: Height 5 foot 4.25 inches, weight 446 pounds. BMI 76.7 Vital Signs Temp 98.2 F 10/11/21 16:04 Pulse 85 10/11/21 16:04 Resp BP 152/89 10/11/21 16:04 Pulse Ox GENERAL: Well-developed in no acute distress. HEENT: No scleral icterus. Extraocular movements grossly intact. Hears conversational speech. No nasal drainage. NECK: Supple without lymphadenopathy. CHEST: Nonlabored respirations with equal bilateral excursions. CARDIOVASCULAR: Regular rate and rhythm. Distal 2+ pulses. ABDOMEN: Obese. Incision intact without infection MUSCULOSKELETAL: No clubbing, cyanosis. NEURO: No focal or lateralizing signs. Cranial nerves 2 through 12 grossly within normal limits. PSYCH: Appropriate affect. Alert and oriented to person, place and time. SKIN: Good skin turgor. Well perfused. ASSESSMENT: 1. Morbid obesity due to excess calories 2. Body mass index of 82.1 to 76.7 3. Osteoarthritis of the knees. 4. Osteoarthritis of the hips. 5. Osteoarthritis of the lower back. 6. Obstructive sleep apnea. 7. Hypertensive heart disease. 8. Gastroesophageal reflux disease 9. Diabetes type 2 10. Osteoarthritis of the bilateral ankles. 11. Bilateral lower extremity edema. 12. Right upper quadrant abdominal pain 13. Supraventricular tachycardia 14. Gastric ulcers 15. Vitamin D deficiency 16. Iron deficiency 17. Tobacco abuse disorder 18. Copper excess 19. Hypertriglyceridemia 20. Second hand tobacco exposure 21. Status post sleeve gastrectomy PLAN: 1. Recommend adjustment of protein shake with goal protein intake of 75 grams daily. Assessment/Plan Plan: Date: Initial Weight: 179.26 kg Initial BMI: Current Weight: Current BMI: Type of Surgery: Total Volume in Band: Previous Volume: Volume Removed: Volume Added: Band Size:
[2021-10-11 15:52] VITALS: BMI 76.7
[2021-10-11 16:06] VITALS: BP 152/89; PULSE 85; TEMP 98.2
--- NOTE | 2021-10-11 16:10 | P.PN ---
Progress Note - Text Progress Note Date: 10/11/21 To whom it may concern: Amber Rodríguez is under my surgical care. She may return to work on October 18, 2021 with exertional restriction of 10 pounds until Oct 30, 2021. Regards, Mallory Silva MD, FACS
== END ==
LOC: BARWHC3 14:28
PROVIDERS: ATTEND Surgery Plastic and Reconstructive Surgery
DX: E66.01 Morbid (severe) obesity due to excess calories (principal); M17.0 Bilateral primary osteoarthritis of knee; M16.0 Bilateral primary osteoarthritis of hip; Z68.45 Body mass index [BMI] 70 or greater, adult; M47.9 Spondylosis, unspecified; G47.33 Obstructive sleep apnea (adult) (pediatric); I11.9 Hypertensive heart disease without heart failure; E11.9 Type 2 diabetes mellitus without complications; M19.071 Primary osteoarthritis, right ankle and foot; M19.072 Primary osteoarthritis, left ankle and foot; R60.0 Localized edema; I47.1 Supraventricular tachycardia; K25.9 Gastric ulcer, unspecified as acute or chronic, without hemorrhage or perforation; E55.9 Vitamin D deficiency, unspecified; K21.9 Gastro-esophageal reflux disease without esophagitis; E61.1 Iron deficiency; Z72.0 Tobacco use; E78.1 Pure hyperglyceridemia; Z98.84 Bariatric surgery status; E83.00 Disorder of copper metabolism, unspecified
CPT/HCPCS: 97803; G0463; 99211

== ENCOUNTER → 2021-11-01 | Outpatient (CLI) | payer OTHER ==
[2021-11-01 15:45] VITALS: BP 142/94; PULSE 54; RESP 16; TEMP 98; BMI 72.8
--- NOTE | 2021-11-01 16:17 | P.BASOAP ---
Subjective Progress Note Date: 11/01/21 DATE OF SERVICE: 11/01/2021 CHIEF COMPLAINT: Status post sleeve gastrectomy HISTORY OF PRESENT ILLNESS: Amber Rodríguez is a 41-year-old female status post sleeve gastrectomy, 10/02/21. She is 1 month out. She had vomited with salmon. She reports she can eat shrimp. She lost 40 pounds in 1 month. She denies gastroesophageal reflux disease. Her pain is controlled. She is doing extremely well. At height of 5 feet 4.25 inches, her ideal body weight is 144 pounds. Highest weight 481 pounds, BMI 81.2. She comes in 427 pounds from 446 pounds, 1 month ago. She has lost 19 pounds in 1month. Body mass index is down from 82.1 to 72.9. She lost 54 pounds lifetime. Lifetime percent excess weight loss is 16 %. She is 283 pounds overweight. PHYSICAL EXAM: VITAL SIGNS: Height 5 foot 4.25 inches, weight 427 pounds. BMI 72.9 Vital Signs Temp 98 F 11/01/21 15:42 Pulse 54 L 11/01/21 15:42 Resp 16 11/01/21 15:42 BP 142/94 11/01/21 15:42 Pulse Ox GENERAL: Well-developed in no acute distress. HEENT: No scleral icterus. Extraocular movements grossly intact. Hears conve rsational speech. No nasal drainage. NECK: Supple without lymphadenopathy. CHEST: Nonlabored respirations with equal bilateral excursions. CARDIOVASCULAR: Regular rate and rhythm. Distal 2+ pulses. ABDOMEN: Obese. Incision intact without infection MUSCULOSKELETAL: No clubbing, cyanosis. NEURO: No focal or lateralizing signs. Cranial nerves 2 through 12 grossly within normal limits. PSYCH: Appropriate affect. Alert and oriented to person, place and time. SKIN: Good skin turgor. Well perfused. ASSESSMENT: 1. Morbid obesity due to excess calories 2. Body mass index of 82.1 to 72.9 3. Osteoarthritis of the knees. 4. Osteoarthritis of the hips. 5. Osteoarthritis of the lower back. 6. Obstructive sleep apnea. 7. Hypertensive heart disease. 8. Gastroesophageal reflux disease 9. Diabetes type 2 10. Osteoarthritis of the bilateral ankles. 11. Bilateral lower extremity edema. 12. Right upper quadrant abdominal pain 13. Supraventricular tachycardia 14. Gastric ulcers 15. Vitamin D deficiency 16. Iron deficiency 17. Tobacco abuse disorder 18. Copper excess 19. Hypertriglyceridemia 20. Second hand tobacco exposure 21. Status post sleeve gastrectomy PLAN: 1. Recommend bariatric labs. 2. Continue protein intake 75 grams daily. 3. Follow up 3 months post-op. 4. Recommend thoroughly chewing bites prior to swallow. Objective - Vital Signs Vital signs: Vital Signs Temp 98 F 11/01/21 15:42 Pulse 54 L 11/01/21 15:42 Resp 16 11/01/21 15:42 BP 142/94 11/01/21 15:42 Pulse Ox Intake & Output 10/31/21 11/01/21 11/01/21 18:59 06:59 18:59 Weight 194.138 kg Assessment/Plan Plan: Date: 11/01/21 Initial Weight: 179.26 kg Initial BMI: 67.3 Current Weight: 194.138 kg Current BMI: 72.8 Type of Surgery: Total Volume in Band: Previous Volume: Volume Removed: Volume Added: Band Size:
== END ==
LOC: BARWHC3 15:28
PROVIDERS: ATTEND Surgery Plastic and Reconstructive Surgery
DX: E66.01 Morbid (severe) obesity due to excess calories (principal); M17.0 Bilateral primary osteoarthritis of knee; M16.0 Bilateral primary osteoarthritis of hip; M47.816 Spondylosis without myelopathy or radiculopathy, lumbar region; G47.33 Obstructive sleep apnea (adult) (pediatric); I11.9 Hypertensive heart disease without heart failure; K21.9 Gastro-esophageal reflux disease without esophagitis; E11.9 Type 2 diabetes mellitus without complications; M19.072 Primary osteoarthritis, left ankle and foot; M19.071 Primary osteoarthritis, right ankle and foot; R60.0 Localized edema; I47.1 Supraventricular tachycardia; K25.9 Gastric ulcer, unspecified as acute or chronic, without hemorrhage or perforation; E55.9 Vitamin D deficiency, unspecified; E61.1 Iron deficiency; Z71.3 Dietary counseling and surveillance; E78.1 Pure hyperglyceridemia; F17.209 Nicotine dependence, unspecified, with unspecified nicotine-induced disorders; Z98.84 Bariatric surgery status; Z68.45 Body mass index [BMI] 70 or greater, adult
CPT/HCPCS: 97803; G0463; 99211